=== PATIENT | female | born 1975 | race Caucasian/White ===

== ENCOUNTER → 2017-09-24 13:04 | Outpatient (CLI) | payer OTHER, SELFPAY ==
--- NOTE | 2017-09-24 13:00 | ECHOCS_ITS ---
Reason For Study: CHF Procedure This was a 2D Doppler, Color Flow transthoracic echocardiogram. The exam was of fair technical quality due to diminished acoustic windows. The study was technically difficult. Contrast injection was performed. Exam performed in department. Left Ventricle Mild to moderately dilated left ventricle. Mild to moderate global left ventricular systolic dysfunction. The estimated ejection fraction is 35 %. Right Ventricle Normal RV size. ICD or pacer leads identified within the right ventricle. Normal systolic function. Atria The left atrium is mildly enlarged. Normal right atrium. ICD or pacer leads identified within the right atrium. No doppler evidence for ASD. Mitral Valve There is no mitral annular calcification. Mild papillary muscle dysfunction of the mitral valve. Mild (1+) mitral valve insufficiency. Tricuspid Valve Normal tricuspid valve. Trivial tricuspid valve insufficiency. Right ventricular systolic pressure estimated to be 30 mmHg. Aortic Valve Trisinus/trileaflet aortic valve. Normal aortic valve. Pulmonic Valve The pulmonic valve is not well visualized. Trivial pulmonic valve insufficiency. Great Vessels Normal sized aortic root. Pericardium/Pleural No pericardial effusion. Medication Definity0.3ml given slow IV push to enhance endocardial definition. MMode/2D Measurements & Calculations LVIDd: 6.0 cm IVSd: 0.85 cm Ao root diam: 2.5 cm LVIDs: 5.0 cm LVPWd: 0.69 cm LA dimension: 4.3 cm RVDd: 3.2 cm FS: 16.2 % LAV(MOD-bp): 63.3 ml LA A4 area: 20.1 cm2 RA A4 area: 13.9 cm2 LAV(MOD-bp) Indexed: 35.0 ml/m2 LAV(MOD-sp2): 58.9 ml LAV(MOD-sp4): 59.9 ml Doppler Measurements & Calculations MV E max quinn: 119.4 cm/sec Lat Peak E' Quinn: 9.5 cm/sec Med Peak E' Quinn: 6.6 cm/sec MV A max quinn: 53.7 cm/sec E/E' lat: 12.6 E/E' med: 18.1 MV E/A: 2.2 Ao V2 max: 148.0 cm/sec LV V1 max: 93.4 cm/sec PA V2 max: 120.0 cm/sec Ao max P.8 mmHg LV V1 max P.5 mmHg Ao V2 mean: 111.4 cm/sec Ao mean P.3 mmHg Ao V2 VTI: 32.5 cm TR max quinn: 258.9 cm/sec TR max P.8 mmHg Interpretation Summary The study was technically difficult. Contrast injection was performed. Mild to moderately dilated left ventricle. Mild to moderate global left ventricular systolic dysfunction. The estimated ejection fraction is 35 %. The left atrium is mildly enlarged. Mild papillary muscle dysfunction of the mitral valve. Mild (1+) mitral valve insufficiency. Trivial pulmonic valve insufficiency. Right ventricular systolic pressure estimated to be 30 mmHg. ICD or pacer leads identified within the right atrium ICD or pacer leads identified within the right ventricle. Ordering Physician: Festus Hope Referring Physician: Jj Alcala Performed By: Daniela Pan, RDCS, RVT
== END ==
PROVIDERS: Family Provider Family Medicine; PCP Family Medicine; Visit Provider Internal Medicine Cardiovascular Disease
DX: I50.9 Heart failure, unspecified (principal)
CPT/HCPCS: 93306; Q9957; A4216; C8929

== ENCOUNTER 2017-11-25 08:05 | Inpatient (IN) | payer OTHER, SELFPAY ==
[2017-11-25] VITALS (10 sets, daily range): BP systolic 112–132; BP diastolic 63–73; PULSE 53–79; RESP 14–18; TEMP 36.8–37.1; O2SAT 94–97; BMI 34.0
--- NOTE | 2017-11-25 09:08 | EKG12_ITS ---
Test Reason : Blood Pressure : / mmHG Vent. Rate : 055 BPM Atrial Rate : 055 BPM P-R Int : 126 ms QRS Dur : 084 ms QT Int : 452 ms P-R-T Axes : 029 001 -08 degrees QTc Int : 432 ms Sinus bradycardia Nonspecific T wave abnormality Abnormal ECG When compared with ECG of 10-MAY-2013 09:54, No significant change was found Confirmed by ADAM GILLIS ([id number]), movie editor RANDI SMITH ([id number]) on 11/27/2017 3:18:47 PM Referred By: Festus Hope Confirmed By:ADAM GILLIS
--- NOTE | 2017-11-25 09:24 | PCM.HP.CAR ---
Problem List (1) Encounter for monitoring anti-arrhythmic therapy Status: Acute (2) Ventricular ectopy Status: Chronic (3) Paroxysmal ventricular tachycardia Status: Chronic (4) Automatic implantable cardiac defibrillator in situ Status: Chronic (5) Cardiomyopathy Status: Chronic Qualifiers: Cardiomyopathy type: unspecified Qualified Code(s): I42.9 - Cardiomyopathy, unspecified History of Present Illness Date of Admission: 11/25/17 The patient is a 41 year old white female with a past cardiovascular history of a non-CAD related cardiomyopathy, associated systolic mediated CHF, cardiac ectopy with PVCs and nonsustained ventricular tachycardia, syncope, status post an ICD placement who presents now for antiarrhythmic medication initiation and monitoring. He has continued outpatient cardiovascular follow-up locally as well as with her tertiary care center export agent for both CHF and electrophysiology at [facility]. She was recently evaluated by her manager environmental health and safety who presented her with an option of initiation of antiarrhythmic therapy with dofetilide/Tikosyn. She requested this be initiated at [facility]. She has denied any ongoing issues of chest discomfort. There has been no episodes of acute CHF or pulmonary edema. There has been no recurrent near syncope or syncope. She states her ICD has not discharged. She most recently underwent evaluation with a 24 hour Holter monitor in August of this year. She had underlying sinus rhythm with occasional paced beats. She had occasional PACs. She had frequent PVCs as well as ventricular couplets, triplets, bigeminy, trigeminy, and nonsustained wide complex tachycardia. Her overall ventricular burden was approximately 16%. Her most recent transthoracic echocardiogram was performed on 09/24/2017. At that time her left ventricle demonstrated mild to moderate dilatation with mild to moderate global left ventricular systolic dysfunction with an estimated LVEF of 35%. She had mild left atrial enlargement with mild papillary muscle dysfunction with mild MR, trivial OR, and an estimated RV systolic pressure of 30 mmHg. She had ICD wires in the right atrium and the right ventricle. [] Past Medical History Allergies/Adverse Reactions: Allergies Sulfa (Sulfonamide Antibiotics) Adverse Reaction (Severe, Verified 08/27/17 15:23) Unknown Home Medications: Ambulatory Orders Medication Instructions Recorded Fluoxetine HCl [Fluoxetine HCl] 40 mg PO DAILY 11/14/16 ascorbic acid (vitamin C) 500 mg 500 mg PO DAILY 08/26/17 tablet aspirin 81 mg tablet,delayed 81 mg PO DAILY 08/26/17 release carvedilol 25 mg tablet 25 mg PO BID tab 08/26/17 cholecalciferol (vitamin D3) 2,000 2,000 unit PO DAILY cap 08/26/17 unit capsule coenzyme Q10 200 mg capsule 200 mg PO DAILY 08/26/17 magnesium oxide 400 mg capsule 400 mg PO BID cap 08/26/17 multivitamin tablet 1 tab PO DAILY 08/26/17 vitamin B complex tablet 1 tab PO DAILY 08/26/17 lisinopril 10 mg tablet 10 mg PO BID #180 tab 09/29/17 Spironolactone 12.5 mg PO DAILY 11/25/17 Past Medical History (Chronic Problems): Chronic Problems (Last Reviewed 08/27/17 @ 15:24 by Joseline Johnson) Cardiomyopathy (Chronic) Ventricular ectopy (Chronic) Automatic implantable cardiac defibrillator in situ (Chronic) Primary idiopathic hypertrophic cardiomyopathy (Chronic) Paroxysmal ventricular tachycardia (Chronic) Congestive heart failure with left ventricular systolic dysfunction (Chronic) Nonrheumatic mitral valve disorder (Chronic) Surgical History: - - ICD Lives: Spouse/ Significant Other Smoking Status: Never smoker Alcohol: None Drugs: None Review of Systems - Review of Systems General: Denies: Fever, Night Sweats, Fatigue Cardiovascular: Reports: Palpitations. Denies: Chest Discomfort, Shortness of Breath, Orthopnea, PND, Peripheral Edema, Lightheadedness, Dizziness, Near Syncope, Syncope Respiratory: Denies: Cough, Sputum Production, Hemoptysis Gastrointestinal: Denies: Hematemesis, Hematochezia, Melena Genitourinary: Denies: Dysuria, Hematuria Skin: Denies: Rash Subjectve: This is a 41-year-old white female who appears to be resting comfortably at the moment in no acute distress. Objective: Vital Signs Temp Pulse Resp BP Pulse Ox 98.3 F 64 14 112/69 97 11/25/17 08:26 11/25/17 09:04 11/25/17 08:26 11/25/17 08:26 11/25/17 08:26 Oxygen Delivery Method Room Air Weight: 180 lb Body Mass Index (BMI) 34.0 General: Awake, Alert, Oriented x 3, Cooperative, No Acute Distress Neck: Supple, Good ROM, No JVD Lungs: Clear to auscultation Cardiovascular: Regular Rhythm, Premature Ectopic Beats, Normal S1, Normal S2 Vascular: No Carotid Bruits Abdomen: Bowel Sounds Present, Soft, Non Tender Extremities: No Cyanosis, No Clubbing, No edema Neurological: No Focal Motor or Sensory Deficit VTE Information - Inpt Only VTE Present on Admission: No VTE Mechan Device Prophylaxis: None VTE Pharm Prophylaxis ordered?: Yes Rhythm: Sinus rhythm EKG: Sinus bradycardia; nonspecific T-wave abnormality ECHO: As noted above Holter monitor: As noted above Assessment/Plan 1. Antiarrhythmic medication initiation The patient is undergoing further evaluation and care for her underlying non-CAD related cardiomyopathy and associated ventricular ectopy as noted above. She has been evaluated locally and by electrophysiology at [facility]. She was asked to consider antiarrhythmic medication therapy with initiation of dofetilide/Tikosyn. She was in agreement to this and requested this be initiated at [facility]. Thus, she presents to [facility] today for elective antiarrhythmic medication initiation. She will continue appropriate laboratory studies. She will have cardiac rhythm monitoring. She will have ECG follow-up. She will be initiated on dofetilide/Tikosyn 250 mcg p.o. twice daily. She will be monitored for any adverse symptoms or cardiovascular events. He will need to be monitored for a minimum of 4 doses in the hospital. If she does well on this medication, etc., then she will be released home for continued outpatient cardiovascular follow-up and monitoring. 2. Ventricular ectopy/nonsustained ventricular tachycardia She does have underlying ventricular ectopy with nonsustained ventricular tachycardia as noted above. She has undergone extensive noninvasive and invasive evaluation in the past. She is to initiate antiarrhythmic monitoring. She does have an underlying ICD in place. 3. ICD The patient does have an underlying ICD. It has been followed as an outpatient. It has been functioning appropriately. 4. Non-CAD related cardiomyopathy The patient does have a non-CAD related cardiomyopathy. She will continue medical management for this. Hopefully with improvement of her underlying cardiac rhythm she may have improvement in her overall left ventricular wall motion systolic function if part of her underlying non-CAD related cardiomyopathy is secondary to her ventricular ectopy-PVC induced. She will be monitored for any obvious symptoms related to her non-CAD related cardiomyopathy. She will continue future outpatient cardiovascular follow-up as well. Comment: The above was discussed and reviewed with the patient. She was agreeable to this approach. This note was generated with [employer] software. It may contain incorrect words, spelling, and punctuation that were not noted in checking the note before signing.
--- NOTE | 2017-11-25 09:27 | HP.PCM_ITS ---
Problem List (1) Encounter for monitoring anti-arrhythmic therapy Status: Acute (2) Ventricular ectopy Status: Chronic (3) Paroxysmal ventricular tachycardia Status: Chronic (4) Automatic implantable cardiac defibrillator in situ Status: Chronic (5) Cardiomyopathy Status: Chronic Qualifiers: Cardiomyopathy type: unspecified Qualified Code(s): I42.9 - Cardiomyopathy , unspecified History of Present Illness Date of Admission: 11/25/17 The patient is a 41 year old white female with a past cardiovascular history of a non-CAD related cardiomyopathy, associated systolic mediated CHF, cardiac ectopy with PVCs and nonsustained ventricular tachycardia, syncope, status post an ICD placement who presents now for antiarrhythmic medication initiation and monitoring. He has continued outpatient cardiovascular follow-up locally as well as with her tertiary care center compliance review specialist for both CHF and electrophysiology at [facility]. She was recently evaluated by her behavioral scientist who presented her with an option of initiation of antiarrhythmic therapy with dofetilide/ Tikosyn. She requested this be initiated at [facility]. She has denied any ongoing issues of chest discomfort. There has been no episodes of acute CHF or pulmonary edema. There has been no recurrent near syncope or syncope. She states her ICD has not discharged. She most recently underwent evaluation with a 24 hour Holter monitor in August of this year. She had underlying sinus rhythm with occasional paced beats. She had occasional PACs. She had frequent PVCs as well as ventricular couplets , triplets, bigeminy, trigeminy, and nonsustained wide complex tachycardia. Her overall ventricular burden was approximately 16%. Her most recent transthoracic echocardiogram was performed on 09/24/2017. At that time her left ventricle demonstrated mild to moderate dilatation with mild to moderate global left ventricular systolic dysfunction with an estimated LVEF of 35%. She had mild left atrial enlargement with mild papillary muscle dysfunction with mild MR, trivial DC, and an estimated RV systolic pressure of 30 mmHg. She had ICD wires in the right atrium and the right ventricle. [] Past Medical History Allergies/Adverse Reactions: Allergies Sulfa (Sulfonamide Antibiotics) Adverse Reaction (Severe, Verified 08/27/17 15: 23) Unknown Home Medications: Ambulatory Orders Medication Instructions Recorded Fluoxetine HCl [Fluoxetine HCl] 40 mg PO DAILY 11/14/16 ascorbic acid (vitamin C) 500 mg 500 mg PO DAILY 08/26/17 tablet aspirin 81 mg tablet,delayed 81 mg PO DAILY 08/26/17 release carvedilol 25 mg tablet 25 mg PO BID tab 08/26/17 cholecalciferol (vitamin D3) 2,000 2,000 unit PO DAILY cap 08/26/17 unit capsule coenzyme Q10 200 mg capsule 200 mg PO DAILY 08/26/17 magnesium oxide 400 mg capsule 400 mg PO BID cap 08/26/17 multivitamin tablet 1 tab PO DAILY 08/26/17 vitamin B complex tablet 1 tab PO DAILY 08/26/17 lisinopril 10 mg tablet 10 mg PO BID #180 tab 09/29/17 Spironolactone 12.5 mg PO DAILY 11/25/17 Past Medical History (Chronic Problems): Chronic Problems (Last Reviewed 08/27/17 @ 15:24 by Joseline Johnson) Cardiomyopathy (Chronic) Ventricular ectopy (Chronic) Automatic implantable cardiac defibrillator in situ (Chronic) Primary idiopathic hypertrophic cardiomyopathy (Chronic) Paroxysmal ventricular tachycardia (Chronic) Congestive heart failure with left ventricular systolic dysfunction (Chronic) Nonrheumatic mitral valve disorder (Chronic) Surgical History: - - ICD Lives: Spouse/ Significant Other Smoking Status: Never smoker Alcohol: None Drugs: None Review of Systems - Review of Systems General: Denies: Fever, Night Sweats, Fatigue Cardiovascular: Reports: Palpitations. Denies: Chest Discomfort, Shortness of Breath, Orthopnea, PND, Peripheral Edema, Lightheadedness, Dizziness, Near Syncope, Syncope Respiratory: Denies: Cough, Sputum Production, Hemoptysis Gastrointestinal: Denies: Hematemesis, Hematochezia, Melena Genitourinary: Denies: Dysuria, Hematuria Skin: Denies: Rash Subjectve: This is a 41-year-old white female who appears to be resting comfortably at the moment in no acute distress. Objective: Vital Signs Temp Pulse Resp BP Pulse Ox 98.3 F 64 14 112/69 97 11/25/17 08:26 11/25/17 09:04 11/25/17 08:26 11/25/17 08:26 11/25/17 08:26 Oxygen Delivery Method Room Air Weight: 180 lb Body Mass Index (BMI) 34.0 General: Awake, Alert, Oriented x 3, Cooperative, No Acute Distress Neck: Supple, Good ROM, No JVD Lungs: Clear to auscultation Cardiovascular: Regular Rhythm, Premature Ectopic Beats, Normal S1, Normal S2 Vascular: No Carotid Bruits Abdomen: Bowel Sounds Present, Soft, Non Tender Extremities: No Cyanosis, No Clubbing, No edema Neurological: No Focal Motor or Sensory Deficit VTE Information - Inpt Only VTE Present on Admission: No VTE Mechan Device Prophylaxis: None VTE Pharm Prophylaxis ordered?: Yes Rhythm: Sinus rhythm EKG: Sinus bradycardia; nonspecific T-wave abnormality ECHO: As noted above Holter monitor: As noted above Assessment/Plan 1. Antiarrhythmic medication initiation The patient is undergoing further evaluation and care for her underlying non- CAD related cardiomyopathy and associated ventricular ectopy as noted above. She has been evaluated locally and by electrophysiology at [facility]. She was asked to consider antiarrhythmic medication therapy with initiation of dofetilide/ Tikosyn. She was in agreement to this and requested this be initiated at [facility]. Thus, she presents to [facility] today for elective antiarrhythmic medication initiation. She will continue appropriate laboratory studies. She will have cardiac rhythm monitoring. She will have ECG follow-up. She will be initiated on dofetilide/Tikosyn 250 mcg p.o. twice daily. She will be monitored for any adverse symptoms or cardiovascular events. He will need to be monitored for a minimum of 4 doses in the hospital. If she does well on this medication, etc., then she will be released home for continued outpatient cardiovascular follow-up and monitoring. 2. Ventricular ectopy/nonsustained ventricular tachycardia She does have underlying ventricular ectopy with nonsustained ventricular tachycardia as noted above. She has undergone extensive noninvasive and invasive evaluation in the past. She is to initiate antiarrhythmic monitoring. She does have an underlying ICD in place. 3. ICD The patient does have an underlying ICD. It has been followed as an outpatient. It has been functioning appropriately. 4. Non-CAD related cardiomyopathy The patient does have a non-CAD related cardiomyopathy. She will continue medical management for this. Hopefully with improvement of her underlying cardiac rhythm she may have improvement in her overall left ventricular wall motion systolic function if part of her underlying non-CAD related cardiomyopathy is secondary to her ventricular ectopy-PVC induced. She will be monitored for any obvious symptoms related to her non-CAD related cardiomyopathy. She will continue future outpatient cardiovascular follow-up as well. Comment: The above was discussed and reviewed with the patient. She was agreeable to this approach. This note was generated with [employer] software. It may contain incorrect words, spelling, and punctuation that were not noted in checking the note before signing.
[2017-11-25 09:55] LABS: Hematocrit 35.5 % (37-47); Hemoglobin 11.8 g/dl (12.0-15.0); Mean Corp Hgb Conc 33.2 g/gl (32-36); Mean Corpuscular Hgb 31.5 pg (27.0-32.0); Mean Corpuscular Volume 94.7 fL (81-99); Mean Platelet Vol. 11.5 fl (6.2-12.0); Platelet Count 220 K/mm3 (150-450); RBC Distribution Width CV 12.4 % (11.6-14.6); RBC Distribution Width SD 41.7 fl (35.1-43.9); Red Blood Count 3.75 M/mm3 (4.2-5.4); White Blood Count 5.8 K/mm3 (4.4-11.0)
[2017-11-25 09:56] LABS: Scan Indicated on CBC? Y/N NO
[2017-11-25 10:08] LABS: Anion Gap 6 (5-15); BUN 12 mg/dL (7-18); BUN/Creat Ratio 17.7 RATIO (10-20); Calcium,Total 8.2 mg/dL (8.5-10.1); Chloride 106 mmol/L (98-107); Creatinine, Serum 0.68 mg/dL (0.55-1.02); EST Glomerular Filtration Rate 101 mL/min (>60); Est Glom Filt Rate - Afr Amer 123 mL/min (>60); Estimated Creatinine Clearance 82.16 ml/min; Glucose 92 mg/dL (74-106); Magnesium 2.1 mg/dL (1.6-2.6); Potassium 4.1 mmol/L (3.5-5.1); Sodium Level 140 mmol/L (136-145)
[2017-11-25] MEDS: Dofetilide 250 MCG Capsule PO ×2 (11:40→21:34)
--- NOTE | 2017-11-25 12:40 | EKG12_ITS ---
Test Reason : MEDICATION Blood Pressure : / mmHG Vent. Rate : 057 BPM Atrial Rate : 057 BPM P-R Int : 132 ms QRS Dur : 072 ms QT Int : 460 ms P-R-T Axes : 022 -03 -08 degrees QTc Int : 447 ms Sinus bradycardia Nonspecific T wave abnormality Abnormal ECG When compared with ECG of 25-NOV-2017 10:04, MANUAL COMPARISON REQUIRED, DATA IS UNCONFIRMED Confirmed by ADAM GILLIS ([id number]), news copy editor RANDI SMITH ([id number]) on 11/27/2017 3:18:59 PM Referred By: Festus Hope Confirmed By:ADAM GILLIS
[2017-11-25] MEDS: Heparin Injection (Vial) 5,000 UNIT/ML VIAL 5000 UNIT SC ×2 (13:59→21:34)
[2017-11-25] MEDS: Magnesium Oxide 400 MG Tablet PO (16:53)
[2017-11-25] MEDS: Lisinopril 10 MG Tablet PO (21:35)
[2017-11-25] MEDS: Carvedilol 25 MG Tablet PO (22:33)
--- NOTE | 2017-11-25 22:40 | EKG12_ITS ---
Test Reason : MED Blood Pressure : / mmHG Vent. Rate : 057 BPM Atrial Rate : 057 BPM P-R Int : 132 ms QRS Dur : 084 ms QT Int : 482 ms P-R-T Axes : 044 014 009 degrees QTc Int : 469 ms Sinus bradycardia Nonspecific T wave abnormality Prolonged QT Abnormal ECG Confirmed by SARIAH GAYLE, FESTUS ([id number]), publications editor RANDI SMITH ([id number] on 11/28/2017 1:33:09 PM Referred By: Festus Rolle Confirmed By:FESTUS ROLLE MD
[2017-11-26] VITALS (10 sets, daily range): BP systolic 107–127; BP diastolic 61–75; PULSE 59–66; RESP 16–18; TEMP 36.7–37.2; O2SAT 95–97
[2017-11-26] MEDS: Heparin Injection (Vial) 5,000 UNIT/ML VIAL 5000 UNIT SC ×3 (05:24→21:21)
--- NOTE | 2017-11-26 05:55 | EKG12_ITS ---
Test Reason : POST MEDICATION Blood Pressure : / mmHG Vent. Rate : 060 BPM Atrial Rate : 060 BPM P-R Int : 132 ms QRS Dur : 076 ms QT Int : 480 ms P-R-T Axes : 040 008 -30 degrees QTc Int : 480 ms Normal sinus rhythm Nonspecific ST and T wave abnormality Prolonged QT Abnormal ECG Confirmed by SARIAH GAYLE, FESTUS ([id number]), editorial specialist RANDI SMITH ([id number] on 11/28/2017 1:27:32 PM Referred By: Festus Rolle Confirmed By:FESTUS ROLLE MD
[2017-11-26 06:54] LABS: Anion Gap 9 (5-15); BUN 12 mg/dL (7-18); BUN/Creat Ratio 15.7 RATIO (10-20); Calcium,Total 8.6 mg/dL (8.5-10.1); Chloride 106 mmol/L (98-107); Creatinine, Serum 0.77 mg/dL (0.55-1.02); EST Glomerular Filtration Rate 88 mL/min (>60); Est Glom Filt Rate - Afr Amer 106 mL/min (>60); Estimated Creatinine Clearance 72.55 ml/min; Glucose 97 mg/dL (74-106); Potassium 4.1 mmol/L (3.5-5.1); Sodium Level 141 mmol/L (136-145)
[2017-11-26] MEDS: Aspirin E.C. 81 MG Tablet PO (09:07)
[2017-11-26] MEDS: Magnesium Oxide 400 MG Tablet PO ×2 (09:07→16:09)
[2017-11-26] MEDS: Lisinopril 10 MG Tablet PO ×2 (09:08→21:22)
[2017-11-26] MEDS: Carvedilol 25 MG Tablet PO ×2 (09:08→21:21)
[2017-11-26] MEDS: FLUoxetine 20 MG Capsule 40 MG PO (09:08)
[2017-11-26] MEDS: Spironolactone 25 MG Tablet 12.5 MG PO (09:08)
[2017-11-26] MEDS: Dofetilide 250 MCG Capsule PO ×2 (09:08→21:21)
--- NOTE | 2017-11-26 09:10 | PCM.PN.CARD ---
Subjectve: The patient is awake and alert. She denies any obvious palpitations or rapid heart rate sensations. There has been no near syncope or syncope. She has denied any other forms of chest discomfort or difficulty breathing. Objective: Vital Signs Temp Pulse Resp BP Pulse Ox 98.3 F 62 18 127/61 H 95 11/26/17 03:30 11/26/17 07:08 11/26/17 03:30 11/26/17 03:30 11/26/17 03:30 Oxygen Delivery Method Room Air Weight: 180 lb Body Mass Index (BMI) 34.0 Intake and Output for Last 24 Hours 11/24/17 11/25/17 11/26/17 23:59 23:59 23:59 Intake Total 1305 / 1305 240 / 240 Balance 1305 / 1305 240 / 240 General: Awake, Alert, Oriented x 3, Cooperative, No Acute Distress Neck: No JVD Lungs: Clear to auscultation Cardiovascular: Regular Rhythm, Normal S1, Normal S2 Vascular: No Carotid Bruits Abdomen: Bowel Sounds Present, Soft, Non Tender Extremities: No edema 11/25/17 09:47: WBC 5.8, RBC 3.75 L, Hgb 11.8 L, Hct 35.5 L, MCV 94.7, MCH 31.5, MCHC 33.2, RDW 12.4, RDW Differential 41.7, Plt Count 220, MPV 11.5 11/25/17 09:47: Sodium 140, Potassium 4.1, Chloride 106, Carbon Dioxide 28.0, Anion Gap 6, BUN 12, Creatinine 0.68, Est GFR (MDRD) Af Amer 123, Est GFR (MDRD) Non-Af 101, BUN/Creatinine Ratio 17.7, Glucose 92, Calcium 8.2 L, Magnesium 2.1 11/26/17 06:00: Sodium 141, Potassium 4.1, Chloride 106, Carbon Dioxide 26.0, Anion Gap 9, BUN 12, Creatinine 0.77, Est GFR (MDRD) Af Amer 106, Est GFR (MDRD) Non-Af 88, BUN/Creatinine Ratio 15.7, Glucose 97, Calcium 8.6 Rhythm: Sinus rhythm; one episode of a 7 beat wide complex tachycardia EKG: Sinus rhythm/sinus bradycardia with nonspecific T-wave abnormality Medical Necessity - Tobacco Use Smoking Status: Never smoker Assessment/Plan 1. Antiarrhythmic medication initiation The patient is undergoing further evaluation and care for her underlying non-CAD related cardiomyopathy and associated ventricular ectopy as noted above. She has been evaluated locally and by electrophysiology at [facility]. She was asked to consider antiarrhythmic medication therapy with initiation of dofetilide/Tikosyn. She was in agreement to this and requested this be initiated at [facility]. Thus, she presents to [facility] today for elective antiarrhythmic medication initiation. She will continue appropriate laboratory studies. She will have cardiac rhythm monitoring. She will have ECG follow-up. She has initiated dofetilide/Tikosyn 250 mcg p.o. twice daily. She will be monitored for any adverse symptoms or cardiovascular events. He will need to be monitored for a minimum of 4 doses in the hospital. If she does well on this medication, etc., then she will be released home for continued outpatient cardiovascular follow-up and monitoring. Thus far, her ECGs have been monitored. She has had variable QT/QTc intervals however no QT or QTC intervals greater than 500 or 550 ms. Her cardiac rhythm is demonstrated one episode of a 7 beat run of wide-complex tachydysrhythmia yesterday evening. 2. Ventricular ectopy/nonsustained ventricular tachycardia She does have underlying ventricular ectopy with nonsustained ventricular tachycardia as noted above. She has undergone extensive noninvasive and invasive evaluation in the past. She has initiated antiarrhythmic monitoring. She does have an underlying ICD in place. 3. ICD The patient does have an underlying ICD. It has been followed as an outpatient. It has been functioning appropriately. 4. Non-CAD related cardiomyopathy The patient does have a non-CAD related cardiomyopathy. She will continue medical management for this. Hopefully with improvement of her underlying cardiac rhythm she may have improvement in her overall left ventricular wall motion systolic function if part of her underlying non-CAD related cardiomyopathy is secondary to her ventricular ectopy-PVC induced. She will be monitored for any obvious symptoms related to her non-CAD related cardiomyopathy. She will continue future outpatient cardiovascular follow-up as well. Comment: Her case was discussed via telephone with her blender operator , Dr. Brandan Sifuentes, of [facility]. He noted that her cardiac rhythm normality's at this time were not thought to be related to the initiation of medication but her underlying ambient ventricular dysrhythmia secondary to her underlying cardiomyopathy. He agreed with continuing her dofetilide/Tikosyn initiation at the current dose, continuing her ECG follow-up, and continuing her cardiac rhythm follow-up. He noted that her QT/QTc intervals would be variable at this time and to monitor for any intervals that would be greater than 500 ms that would warrant alteration in the dose or discontinuation of the medication. The above was discussed and reviewed with the patient. She was agreeable to this approach. This note was generated with [employer] dictation software. It may contain incorrect words, spelling, and punctuation that were not noted in checking the note before signing.
--- NOTE | 2017-11-26 09:16 | PN.CARD_ITS ---
Subjectve: The patient is awake and alert. She denies any obvious palpitations or rapid heart rate sensations. There has been no near syncope or syncope. She has denied any other forms of chest discomfort or difficulty breathing. Objective: Vital Signs Temp Pulse Resp BP Pulse Ox 98.3 F 62 18 127/61 H 95 11/26/17 03:30 11/26/17 07:08 11/26/17 03:30 11/26/17 03:30 11/26/17 03:30 Oxygen Delivery Method Room Air Weight: 180 lb Body Mass Index (BMI) 34.0 Intake and Output for Last 24 Hours 11/24/17 11/25/17 11/26/17 23:59 23:59 23:59 Intake Total 1305 / 1305 240 / 240 Balance 1305 / 1305 240 / 240 General: Awake, Alert, Oriented x 3, Cooperative, No Acute Distress Neck: No JVD Lungs: Clear to auscultation Cardiovascular: Regular Rhythm, Normal S1, Normal S2 Vascular: No Carotid Bruits Abdomen: Bowel Sounds Present, Soft, Non Tender Extremities: No edema 11/25/17 09:47: WBC 5.8, RBC 3.75 L, Hgb 11.8 L, Hct 35.5 L, MCV 94.7, MCH 31.5 , MCHC 33.2, RDW 12.4, RDW Differential 41.7, Plt Count 220, MPV 11.5 11/25/17 09:47: Sodium 140, Potassium 4.1, Chloride 106, Carbon Dioxide 28.0, Anion Gap 6, BUN 12, Creatinine 0.68, Est GFR (MDRD) Af Amer 123, Est GFR (MDRD ) Non-Af 101, BUN/Creatinine Ratio 17.7, Glucose 92, Calcium 8.2 L, Magnesium 2.1 11/26/17 06:00: Sodium 141, Potassium 4.1, Chloride 106, Carbon Dioxide 26.0, Anion Gap 9, BUN 12, Creatinine 0.77, Est GFR (MDRD) Af Amer 106, Est GFR (MDRD ) Non-Af 88, BUN/Creatinine Ratio 15.7, Glucose 97, Calcium 8.6 Rhythm: Sinus rhythm; one episode of a 7 beat wide complex tachycardia EKG: Sinus rhythm/sinus bradycardia with nonspecific T-wave abnormality Medical Necessity - Tobacco Use Smoking Status: Never smoker Assessment/Plan 1. Antiarrhythmic medication initiation The patient is undergoing further evaluation and care for her underlying non- CAD related cardiomyopathy and associated ventricular ectopy as noted above. She has been evaluated locally and by electrophysiology at [facility]. She was asked to consider antiarrhythmic medication therapy with initiation of dofetilide/ Tikosyn. She was in agreement to this and requested this be initiated at [facility]. Thus, she presents to [facility] today for elective antiarrhythmic medication initiation. She will continue appropriate laboratory studies. She will have cardiac rhythm monitoring. She will have ECG follow-up. She has initiated dofetilide/Tikosyn 250 mcg p.o. twice daily. She will be monitored for any adverse symptoms or cardiovascular events. He will need to be monitored for a minimum of 4 doses in the hospital. If she does well on this medication, etc., then she will be released home for continued outpatient cardiovascular follow-up and monitoring. Thus far, her ECGs have been monitored. She has had variable QT/QTc intervals however no QT or QTC intervals greater than 500 or 550 ms. Her cardiac rhythm is demonstrated one episode of a 7 beat run of wide-complex tachydysrhythmia yesterday evening. 2. Ventricular ectopy/nonsustained ventricular tachycardia She does have underlying ventricular ectopy with nonsustained ventricular tachycardia as noted above. She has undergone extensive noninvasive and invasive evaluation in the past. She has initiated antiarrhythmic monitoring. She does have an underlying ICD in place. 3. ICD The patient does have an underlying ICD. It has been followed as an outpatient. It has been functioning appropriately. 4. Non-CAD related cardiomyopathy The patient does have a non-CAD related cardiomyopathy. She will continue medical management for this. Hopefully with improvement of her underlying cardiac rhythm she may have improvement in her overall left ventricular wall motion systolic function if part of her underlying non-CAD related cardiomyopathy is secondary to her ventricular ectopy-PVC induced. She will be monitored for any obvious symptoms related to her non-CAD related cardiomyopathy. She will continue future outpatient cardiovascular follow-up as well. Comment: Her case was discussed via telephone with her aircraft maintenance supervisor , Dr. Brandan Sifuentes, of [facility]. He noted that her cardiac rhythm normality's at this time were not thought to be related to the initiation of medication but her underlying ambient ventricular dysrhythmia secondary to her underlying cardiomyopathy. He agreed with continuing her dofetilide/Tikosyn initiation at the current dose, continuing her ECG follow-up, and continuing her cardiac rhythm follow-up. He noted that her QT/QTc intervals would be variable at this time and to monitor for any intervals that would be greater than 500 ms that would warrant alteration in the dose or discontinuation of the medication. The above was discussed and reviewed with the patient. She was agreeable to this approach. This note was generated with [employer] dictation software. It may contain incorrect words, spelling, and punctuation that were not noted in checking the note before signing.
--- NOTE | 2017-11-26 10:08 | EKG12_ITS ---
Test Reason : Blood Pressure : / mmHG Vent. Rate : 063 BPM Atrial Rate : 063 BPM P-R Int : 128 ms QRS Dur : 072 ms QT Int : 426 ms P-R-T Axes : 029 -07 027 degrees QTc Int : 435 ms Normal sinus rhythm Nonspecific ST and T wave abnormality Abnormal ECG Confirmed by SARIAH GAYLE, FESTUS ([id number]), news editor RANDI SMITH ([id number]) on 11/28/2017 1:27:45 PM Referred By: Festus Rolle Confirmed By:FESTUS ROLLE MD
[2017-11-26] MEDS: 0.9% NaCl Peripheral Flush Adult/Peds IV (13:09)
--- NOTE | 2017-11-26 21:21 | NURSING ---
ilan in resp notified ekg at 2219.
--- NOTE | 2017-11-26 22:30 | EKG12_ITS ---
Test Reason : AM EKG Blood Pressure : / mmHG Vent. Rate : 064 BPM Atrial Rate : 064 BPM P-R Int : 136 ms QRS Dur : 082 ms QT Int : 452 ms P-R-T Axes : 041 016 -15 degrees QTc Int : 466 ms Normal sinus rhythm Nonspecific T wave abnormality Prolonged QT Abnormal ECG Confirmed by SARIAH GAYLE, FESTUS ([id number]), city editor RANDI SMITH ([id number]) on 11/28/2017 1:29:17 PM Referred By: Festus Rolle Confirmed By:FESTUS ROLLE MD
[2017-11-27 03:14] VITALS: BP 111/69; PULSE 56; RESP 16; TEMP 36.8; O2SAT 98
[2017-11-27 03:34] VITALS: PULSE 51
[2017-11-27] MEDS: Heparin Injection (Vial) 5,000 UNIT/ML VIAL 5000 UNIT SC (05:26)
--- NOTE | 2017-11-27 05:55 | EKG12_ITS ---
Test Reason : AM EKG Blood Pressure : / mmHG Vent. Rate : 060 BPM Atrial Rate : 060 BPM P-R Int : 134 ms QRS Dur : 084 ms QT Int : 462 ms P-R-T Axes : 040 010 -11 degrees QTc Int : 462 ms Normal sinus rhythm Nonspecific T wave abnormality Prolonged QT Abnormal ECG Confirmed by SARIAH GAYLE, FESTUS ([id number]), multimedia editor RANDI SMITH ([id number]) on 11/28/2017 1:25:13 PM Referred By: Festus Rolle Confirmed By:FESTUS ROLLE MD
[2017-11-27 06:16] LABS: Anion Gap 7 (5-15); BUN 14 mg/dL (7-18); BUN/Creat Ratio 19.5 RATIO (10-20); Calcium,Total 8.7 mg/dL (8.5-10.1); Chloride 106 mmol/L (98-107); Creatinine, Serum 0.72 mg/dL (0.55-1.02); EST Glomerular Filtration Rate 95 mL/min (>60); Est Glom Filt Rate - Afr Amer 115 mL/min (>60); Estimated Creatinine Clearance 77.59 ml/min; Glucose 104 mg/dL (74-106); Potassium 4.1 mmol/L (3.5-5.1); Sodium Level 141 mmol/L (136-145)
[2017-11-27 07:29] VITALS: PULSE 59
[2017-11-27] MEDS: Magnesium Oxide 400 MG Tablet PO (08:56)
[2017-11-27] MEDS: Spironolactone 25 MG Tablet 12.5 MG PO (08:56)
[2017-11-27] MEDS: Carvedilol 25 MG Tablet PO (08:56)
[2017-11-27] MEDS: Aspirin E.C. 81 MG Tablet PO (08:56)
[2017-11-27] MEDS: FLUoxetine 20 MG Capsule 40 MG PO (08:57)
[2017-11-27] MEDS: Lisinopril 10 MG Tablet PO (08:57)
[2017-11-27] MEDS: Dofetilide 250 MCG Capsule PO (08:57)
[2017-11-27 09:15] VITALS: BP 125/75; PULSE 63; RESP 16; TEMP 36.8; O2SAT 94
--- NOTE | 2017-11-27 10:00 | EKG12_ITS ---
Test Reason : MEDICATION Blood Pressure : / mmHG Vent. Rate : 060 BPM Atrial Rate : 060 BPM P-R Int : 124 ms QRS Dur : 072 ms QT Int : 462 ms P-R-T Axes : 018 -05 -08 degrees QTc Int : 462 ms Normal sinus rhythm Nonspecific T wave abnormality Abnormal ECG Confirmed by SARIAH GAYLE, FESTUS ([id number]), brands editor RANDI SMITH ([id number]) on 11/28/2017 1:23:30 PM Referred By: Festus Rolle Confirmed By:FESTUS ROLLE MD
--- NOTE | 2017-11-27 10:41 | CASEMGMT ---
CM Initial Assessment: Home: Patient lives in a one story home, with basement. She lives with her and two sons. HHS: Never had. DME: None. Patient denies foreseeing needs. Pharmacy: [facility] (preferred). [facility] in [place]. Adv. Directives: None. Patient refuses assistance/information at this time. Providers: PCP - Jj Alcala. Cardiology - Dr. Hope and Dr. Alvarado ([facility]). DC Plan: Home, with family support. CM will follow for effective discharge planning.
[2017-11-27 11:26] VITALS: PULSE 74
--- NOTE | 2017-11-27 13:27 | PCM.DC ---
- Discharge Diagnoses Current Active Problems: Current Active and Chronic Problems (Last Reviewed 08/27/17 @ 15:24 by Joseline Johnson) Encounter for monitoring anti-arrhythmic therapy (Acute) Cardiomyopathy (Chronic) You will use the following diet at home:: Cardiac Your food should be the consistency of: Regular Your liquids should be the consistency of: Regular/Thin Discharge Activity: Return to Normal Activity Return to work on:: 11/28/17 May shower in (days): 1 May resume sexual activity in: No Restrictions Weight Bearing Status: Weight bearing as tolerated Call your doctor if you observe: Fainting spells, Increased palpitations (irregular heartbeat) Additional Dressing/Incision Instructions:: [facility] to arrange follow up office visit and outpatient ECG Allergies/Adverse Reactions: Allergies Sulfa (Sulfonamide Antibiotics) Adverse Reaction (Severe, Verified 08/27/17 15:23) Unknown Medications to take at Discharge Fluoxetine HCl 40 mg PO DAILY 11/14/16 ascorbic acid (vitamin C) 500 mg tablet 500 mg PO DAILY 08/26/17 aspirin 81 mg tablet,delayed release 81 mg PO DAILY 08/26/17 carvedilol 25 mg tablet 25 mg PO BID tab 08/26/17 cholecalciferol (vitamin D3) 2,000 unit capsule 2,000 unit PO DAILY cap 08/26/17 coenzyme Q10 200 mg capsule 200 mg PO DAILY 08/26/17 magnesium oxide 400 mg capsule 400 mg PO BID cap 08/26/17 multivitamin tablet 1 tab PO DAILY 08/26/17 vitamin B complex tablet 1 tab PO DAILY 08/26/17 lisinopril 10 mg tablet 10 mg PO BID #180 tab 09/29/17 Spironolactone 12.5 mg PO DAILY 11/25/17 Aspirin E.C. [Ecotrin] 81 mg PO DAILY@0800 tablet 11/27/17 Carvedilol [Coreg (Beta Telma)] 25 mg PO BID tablet 11/27/17 Dofetilide [Tikosyn] 250 mcg PO Q12 #60 cap 11/27/17 Fluoxetine [Prozac] 40 mg PO DAILY capsule 11/27/17 Lisinopril [Zestril] 10 mg PO BID tablet 11/27/17 Magnesium Oxide [Mag-Ox 400] 400 mg PO BIDCM tablet 11/27/17 Spironolactone [Aldactone] 12.5 mg PO DAILY tablet 11/27/17 The following prescriptions were given: Dofetilide [Tikosyn] 250 mcg PO Q12 #60 cap Primary Care Physician: Jj Alcala MD [Primary Care Provider] - Please Follow Up With: Festus Hope MD When: To be arranged by [facility] [facility] Proposed Discharge Date: 11/27/17
--- NOTE | 2017-11-27 13:31 | DCINST_ITS ---
- Discharge Diagnoses Current Active Problems: Current Active and Chronic Problems (Last Reviewed 08/27/17 @ 15:24 by Joseline Johnson) Encounter for monitoring anti-arrhythmic therapy (Acute) Cardiomyopathy (Chronic) You will use the following diet at home:: Cardiac Your food should be the consistency of: Regular Your liquids should be the consistency of: Regular/Thin Discharge Activity: Return to Normal Activity Return to work on:: 11/28/17 May shower in (days): 1 May resume sexual activity in: No Restrictions Weight Bearing Status: Weight bearing as tolerated Call your doctor if you observe: Fainting spells, Increased palpitations ( irregular heartbeat) Additional Dressing/Incision Instructions:: [facility] to arrange follow up office visit and outpatient ECG Allergies/Adverse Reactions: Allergies Sulfa (Sulfonamide Antibiotics) Adverse Reaction (Severe, Verified 08/27/17 15: 23) Unknown Medications to take at Discharge Fluoxetine HCl 40 mg PO DAILY 11/14/16 ascorbic acid (vitamin C) 500 mg tablet 500 mg PO DAILY 08/26/17 aspirin 81 mg tablet,delayed release 81 mg PO DAILY 08/26/17 carvedilol 25 mg tablet 25 mg PO BID tab 08/26/17 cholecalciferol (vitamin D3) 2,000 unit capsule 2,000 unit PO DAILY cap coenzyme Q10 200 mg capsule 200 mg PO DAILY 08/26/17 magnesium oxide 400 mg capsule 400 mg PO BID cap 08/26/17 multivitamin tablet 1 tab PO DAILY 08/26/17 vitamin B complex tablet 1 tab PO DAILY 08/26/17 lisinopril 10 mg tablet 10 mg PO BID #180 tab 09/29/17 Spironolactone 12.5 mg PO DAILY 11/25/17 Aspirin E.C. [Ecotrin] 81 mg PO DAILY@0800 tablet 11/27/17 Carvedilol [Coreg (Beta Telma)] 25 mg PO BID tablet 11/27/17 Dofetilide [Tikosyn] 250 mcg PO Q12 #60 cap 11/27/17 Fluoxetine [Prozac] 40 mg PO DAILY capsule 11/27/17 Lisinopril [Zestril] 10 mg PO BID tablet 11/27/17 Magnesium Oxide [Mag-Ox 400] 400 mg PO BIDCM tablet 11/27/17 Spironolactone [Aldactone] 12.5 mg PO DAILY tablet 11/27/17 The following prescriptions were given: Dofetilide [Tikosyn] 250 mcg PO Q12 #60 cap Primary Care Physician: Jj Alcala MD [Primary Care Provider] - Please Follow Up With: Festus Hope MD When: To be arranged by [facility] Proposed Discharge Date: 11/27/17
[2017-11-27 14:05] VITALS: BP 111/71; PULSE 72; RESP 16; O2SAT 96
--- NOTE | 2017-11-27 17:44 | PCM.DC.SUM ---
Discharge Date and Diagnosis Date of Admission: 11/25/17 Date of Discharge: 11/27/17 - Primary Discharge Diagnosis Encounter for antiarrhythmic medication initiation and monitoring - Secondary Discharge Diagnosis Chronic Problems (Last Reviewed 08/27/17 @ 15:24 by Joseline Johnson) Cardiomyopathy (Chronic) Ventricular ectopy (Chronic) Automatic implantable cardiac defibrillator in situ (Chronic) Primary idiopathic hypertrophic cardiomyopathy (Chronic) Paroxysmal ventricular tachycardia (Chronic) Congestive heart failure with left ventricular systolic dysfunction (Chronic) Nonrheumatic mitral valve disorder (Chronic) Hospital Course and Treatment Operations: None Procedures: None Summary of Care Provided: The patient is a 41 year old white female with the aforementioned diagnosis who presents for an encounter for antiarrhythmic medication initiation monitoring. As per the H&P she has been undergoing outpatient cardiovascular evaluation locally and by electrophysiology at [facility]. On her ongoing evaluation care she was brought to the hospital for initiation of antiarrhythmic therapy with dofetilide/Tikosyn. During her hospital stay she was monitored with cardiac rhythm monitoring and with repeat ECGs. She was started on dofetilide/Tikosyn at 250 mcg p.o. twice daily. She appeared without obvious adverse side effect from a clinical standpoint or an objective standpoint. She did not appear to have any pro arrhythmic adverse events. She continued to be followed for any other changes with her underlying cardiovascular status. She continued her cardiovascular medical therapy. On 11/27/2017, after having been monitored in the hospital for a minimum of 5 doses of dofetilide/Tikosyn over a 3 day with cardiac rhythm monitoring and ECG follow-up with no obvious adverse side effects it was elected to release the patient home for continued outpatient cardiovascular follow-up. [] Discharge Activity: Return to Normal Activity Return to work on:: 11/28/17 May shower in (days): 1 May resume sexual activity in: No Restrictions Weight Bearing Status: Weight bearing as tolerated Call your doctor if you observe: Fainting spells, Increased palpitations (irregular heartbeat) Additional Dressing/Incision Instructions:: [facility] to arrange follow up office visit and outpatient ECG Home Medications: Medications to take at Discharge Fluoxetine HCl 40 mg PO DAILY 11/14/16 ascorbic acid (vitamin C) 500 mg tablet 500 mg PO DAILY 08/26/17 aspirin 81 mg tablet,delayed release 81 mg PO DAILY 08/26/17 carvedilol 25 mg tablet 25 mg PO BID tab 08/26/17 cholecalciferol (vitamin D3) 2,000 unit capsule 2,000 unit PO DAILY cap 08/26/17 coenzyme Q10 200 mg capsule 200 mg PO DAILY 08/26/17 magnesium oxide 400 mg capsule 400 mg PO BID cap 08/26/17 multivitamin tablet 1 tab PO DAILY 08/26/17 vitamin B complex tablet 1 tab PO DAILY 08/26/17 lisinopril 10 mg tablet 10 mg PO BID #180 tab 09/29/17 Spironolactone 12.5 mg PO DAILY 11/25/17 Aspirin E.C. [Ecotrin] 81 mg PO DAILY@0800 tablet 11/27/17 Carvedilol [Coreg (Beta Telma)] 25 mg PO BID tablet 11/27/17 Dofetilide [Tikosyn] 250 mcg PO Q12 #60 cap 11/27/17 Fluoxetine [Prozac] 40 mg PO DAILY capsule 11/27/17 Lisinopril [Zestril] 10 mg PO BID tablet 11/27/17 Magnesium Oxide [Mag-Ox 400] 400 mg PO BIDCM tablet 11/27/17 Spironolactone [Aldactone] 12.5 mg PO DAILY tablet 11/27/17 Following Prescrptions Were Given to Patient: Dofetilide [Tikosyn] 250 mcg PO Q12 #60 cap Primary Care Physician: Jj Alcala MD [Primary Care Provider] - Please Follow Up With: Festus Hope MD When: To be arranged by [facility] Disposition: Home Minutes spent on discharge:: 30 Patient Condition:: Stable Medical Necessity - Tobacco Use Smoking Status: Never smoker Meaningful Use Info Meaningful Use Diagnoses (Choose all that apply): None applicable
== END 2017-11-27 14:22 | disposition home or self-care (01) | DRG 949 ==
PROVIDERS: Admitting Provider Internal Medicine Cardiovascular Disease; Family Provider Family Medicine; PCP Family Medicine; Visit Provider Internal Medicine Cardiovascular Disease
DX: Z51.81 Encounter for therapeutic drug level monitoring (principal); I42.2 Other hypertrophic cardiomyopathy; I47.2 Ventricular tachycardia; I50.22 Chronic systolic (congestive) heart failure; I49.3 Ventricular premature depolarization; Z95.810 Presence of automatic (implantable) cardiac defibrillator; Z79.899 Other long term (current) drug therapy
CPT/HCPCS: 36415; 80048; 83735; 85027; 93005; A4216

== ENCOUNTER → 2017-12-29 15:08 | Outpatient (CLI) | payer OTHER, SELFPAY | PROVIDERS: Family Provider Family Medicine; PCP Family Medicine; Visit Provider Internal Medicine Cardiovascular Disease | DX: I47.2 Ventricular tachycardia (principal); I34.9 Nonrheumatic mitral valve disorder, unspecified; I49.3 Ventricular premature depolarization; I50.20 Unspecified systolic (congestive) heart failure | CPT/HCPCS: 93225; 93226 ==

== ENCOUNTER → 2018-05-23 08:06 | Outpatient (CLI) | payer OTHER, SELFPAY ==
[2018-05-23 08:33] LABS: Absolute Lymphocyte Count 1.75 X10^3/ul (0.83-4.51); Absolute Neutrophil Count 3.1 X10^3/uL (2.0-7.7); Basophil# 0.03 X10^3/uL; Basophil% 0.5 % (0-1); Eosinophil# 0.23 X10^3/uL; Eosinophils% 4.1 % (0-5); Hematocrit 36.6 % (37-47); Hemoglobin 11.7 g/dl (12.0-15.0); Lymphocyte # 1.75 X10^3/ul (4.0); Mean Corpuscular Volume 96.8 fL (81-99); Mean Platelet Vol. 11.5 fl (6.2-12.0); Monocyte% 8.9 % (0-10); Neutrophil # 3.12 X10^3/uL (2.7-7.7); Neutrophil % 55.3 % (47-70); Platelet Count 236 K/mm3 (150-450); RBC Distribution Width CV 12.8 % (11.6-14.6); RBC Distribution Width SD 43.9 fl (35.1-43.9); Red Blood Count 3.78 M/mm3 (4.2-5.4); White Blood Count 5.6 K/mm3 (4.4-11.0)
[2018-05-23 08:35] LABS: POSITIVE COUNT NO; POSITIVE DIFFERENTIAL NO; POSITIVE MORPHOLOGY NO
[2018-05-23 09:20] LABS: Hemoglobin A1c 5.6 % (4.2-6.3)
[2018-05-23 09:23] LABS: ALB/GLOB Ratio 0.9 RATIO (0.9-2.4); AST(SGOT) 12 U/L (15-37); Alanine Aminotransfer ALT/SGPT 22 U/L (13-56); Albumin, Serum 3.3 g/dL (3.2-5.0); Alkaline Phosphatase 97 U/L (45-117); Anion Gap 6 (5-15); BUN 14 mg/dL (7-18); BUN/Creat Ratio 16.7 RATIO (10-20); Calcium,Total 7.8 mg/dL (8.5-10.1); Chloride 108 mmol/L (98-107); Cholesterol 173 mg/dL (200); Creatinine, Serum 0.84 mg/dL (0.55-1.02); EST Glomerular Filtration Rate 79 mL/min (>60); Est Glom Filt Rate - Afr Amer 96 mL/min (>60); Globulin 3.5 g/dL (2.2-4.2); Glucose 93 mg/dL (74-106); High Density Lipoprotein 59 mg/dL; Potassium 4.5 mmol/L (3.5-5.1); Protein, Total 6.8 g/dL (6.4-8.2); Sodium Level 140 mmol/L (136-145); Thyroid Stim Hormone (TSH) 0.29 uIU/mL (0.358-3.74); Triglycerides 95 mg/dL; Very Low Density Lipoprotein 19 mg/dL (5-40)
== END ==
LOC: LAB 08:07
PROVIDERS: Family Provider Family Medicine; PCP Family Medicine; Referring Provider Family Medicine; Visit Provider Family Medicine
DX: I42.0 Dilated cardiomyopathy (principal); E66.9 Obesity, unspecified; Z68.34 Body mass index [BMI] 34.0-34.9, adult
CPT/HCPCS: 36415; 80053; 80061; 83036; 84443; 85025

== ENCOUNTER → 2018-10-12 15:16 | Outpatient (CLI) | payer OTHER, SELFPAY ==
[2018-09-03 16:24] VITALS: BMI 37.2
--- NOTE | 2018-10-12 15:19 | ECHOD_ITS ---
Reason For Study: Increasing PVC Procedure This was a 2D Doppler, Color Flow transthoracic echocardiogram. The study was technically difficult. Exam performed in department. Left Ventricle Mildly dilated left ventricle. Mild to moderate global left ventricular systolic dysfunction. The estimated ejection fraction is 35 %. No evidence for diastolic dysfunction. Right Ventricle Normal RV size. ICD or pacer leads identified within the right ventricle. Normal systolic function. Atria The left atrium is mildly enlarged. Normal right atrium. ICD or pacer leads identified within the right atrium. No doppler evidence for ASD. Mitral Valve There is no mitral annular calcification. Mild papillary muscle dysfunction of the mitral valve. Trivial mitral valve insufficiency. Tricuspid Valve Normal tricuspid valve. Trivial tricuspid valve insufficiency. Right ventricular systolic pressure estimated to be 30 mmHg. Aortic Valve Trisinus/trileaflet aortic valve. Normal aortic valve. Pulmonic Valve The pulmonic valve is not well visualized. Great Vessels The aortic root is not well visualized. Pericardium/Pleural No pericardial effusion. MMode/2D Measurements & Calculations LVIDd: 5.1 cm IVSd: 1.0 cm Ao root diam: 2.7 cm LVIDs: 4.5 cm LVPWd: 0.97 cm LA dimension: 3.8 cm RVDd: 3.1 cm FS: 12.5 % LAV(MOD-bp): 61.5 ml LA A4 area: 22.4 cm2 RA A4 area: 11.4 cm2 LAV(MOD-bp) Indexed: 34.4 ml/m2 LAV(MOD-sp2): 47.2 ml LAV(MOD-sp4): 74.7 ml Time Measurements MV dec time: 0.23 sec Doppler Measurements & Calculations MV E max quinn: 106.5 cm/sec Lat Peak E' Quinn: 10.9 cm/sec Med Peak E' Quinn: 9.8 cm/sec MV A max quinn: 60.1 cm/sec E/E' lat: 9.8 E/E' med: 10.9 MV E/A: 1.8 MV V2 max: 119.3 cm/sec MV P1/2t max quinn: 119.8 cm/sec Ao V2 max: 135.9 cm/sec MV max P.7 mmHg MV P1/2t: 89.5 msec Ao max P.4 mmHg MV V2 mean: 65.9 cm/sec MV dec slope: 392.2 cm/sec2 MV mean P.1 mmHg MVA(P1/2t): 2.5 cm2 MV V2 VTI: 33.3 cm LV V1 max: 95.9 cm/sec PA V2 max: 104.9 cm/sec TR max quinn: 259.5 cm/sec LV V1 max P.7 mmHg TR max P.1 mmHg Interpretation Summary The study was technically difficult. Mildly dilated left ventricle. Mild to moderate global left ventricular systolic dysfunction. The estimated ejection fraction is 35 %. The left atrium is mildly enlarged. Mild papillary muscle dysfunction of the mitral valve. Trivial mitral valve insufficiency. Trivial tricuspid valve insufficiency. Right ventricular systolic pressure estimated to be 30 mmHg. No evidence for diastolic dysfunction. ICD or pacer leads identified within the right atrium ICD or pacer leads identified within the right ventricle. Ordering Physician: Haider Pan Referring Physician: Haider Pan Performed By: Bert Floyd RCS
== END ==
LOC: CVS 15:19
PROVIDERS: Family Provider Family Medicine; PCP Family Medicine; Referring Provider Nurse Practitioner Family; Visit Provider Nurse Practitioner Family
DX: I42.9 Cardiomyopathy, unspecified (principal); I49.3 Ventricular premature depolarization
CPT/HCPCS: 93306

== ENCOUNTER → 2019-06-14 12:33 | Outpatient (CLI) | payer OTHER, SELFPAY ==
[2019-06-09 10:26] VITALS: BMI 35.9
[2019-06-14 13:29] LABS: AST(SGOT) 12 U/L (15-37); Alanine Aminotransfer ALT/SGPT 20 U/L (13-56); Albumin, Serum 3.5 g/dL (3.2-5.0); Alkaline Phosphatase 90 U/L (45-117); Anion Gap 7 (5-15); BUN 10 mg/dL (7-18); BUN/Creat Ratio 13.1 RATIO (10-20); Bilirubin, Direct 0.17 mg/dL (0.00-0.30); Calcium,Total 8.4 mg/dL (8.5-10.1); Chloride 106 mmol/L (98-107); Cholesterol 172 mg/dL (200); Creatinine, Serum 0.76 mg/dL (0.55-1.02); EST Glomerular Filtration Rate 88 mL/min (>60); Est Glom Filt Rate - Afr Amer 106 mL/min (>60); Globulin 3.6 g/dL (2.2-4.2); Glucose 91 mg/dL (74-106); High Density Lipoprotein 65 mg/dL; Potassium 3.7 mmol/L (3.5-5.1); Protein, Total 7.1 g/dL (6.4-8.2); Sodium Level 140 mmol/L (136-145); T4 Total, Thyroxin 7.8 ug/dL (4.8-13.9); Thyroid Stim Hormone (TSH) 0.28 uIU/mL (0.358-3.74); Triglycerides 74 mg/dL; Very Low Density Lipoprotein 15 mg/dL (5-40)
== END ==
PROVIDERS: Family Provider Family Medicine; PCP Family Medicine; Referring Provider Internal Medicine Cardiovascular Disease; Visit Provider Internal Medicine Cardiovascular Disease
DX: I42.9 Cardiomyopathy, unspecified (principal); I49.3 Ventricular premature depolarization; R55 Syncope and collapse; I50.20 Unspecified systolic (congestive) heart failure; Z95.810 Presence of automatic (implantable) cardiac defibrillator
CPT/HCPCS: 36415; 80048; 80061; 80076; 84436; 84443

== ENCOUNTER → 2020-01-10 16:51 | Outpatient (CLI) | payer OTHER, SELFPAY ==
[2020-01-10 15:03] VITALS: BMI 35.3
[2020-01-10 18:18] LABS: Anion Gap 7 (5-15); BUN 14 mg/dL (7-18); BUN/Creat Ratio 18.1 RATIO (10-20); Calcium,Total 8.5 mg/dL (8.5-10.1); Chloride 105 mmol/L (98-107); Creatinine, Serum 0.77 mg/dL (0.55-1.02); EST Glomerular Filtration Rate 86 mL/min (>60); Est Glom Filt Rate - Afr Amer 104 mL/min (>60); Glucose 93 mg/dL (74-106); Sodium Level 138 mmol/L (136-145)
== END ==
PROVIDERS: PCP Family Medicine; Visit Provider Internal Medicine Cardiovascular Disease
DX: I42.9 Cardiomyopathy, unspecified (principal); I50.20 Unspecified systolic (congestive) heart failure; I47.2 Ventricular tachycardia; R55 Syncope and collapse; I34.9 Nonrheumatic mitral valve disorder, unspecified; Z95.810 Presence of automatic (implantable) cardiac defibrillator
CPT/HCPCS: 36415; 80048

== ENCOUNTER → 2020-11-24 14:10 | Outpatient (CLI) | payer OTHER, SELFPAY ==
[2020-07-31 09:00] VITALS: BMI 35.3
[2020-11-24 15:39] LABS: Absolute Lymphocyte Count 2.35 X10^3/uL (0.83-4.51); Absolute Neutrophil Count 5.4 X10^3/uL (2.0-7.7); Basophil# 0.06 X10^3/uL; Basophil% 0.7 % (0-1); Eosinophil# 0.27 X10^3/uL; Hematocrit 38.8 % (37-47); Hemoglobin 12.3 g/dL (12.0-15.0); Lymphocyte # 2.35 X10^3/ul (0.83-4.51); Lymphocyte % 25.7 % (19-41); Mean Corp Hgb Conc 31.7 g/dL (32-36); Mean Corpuscular Hgb 29.8 pg (27.0-32.0); Mean Corpuscular Volume 93.9 fL (81-99); Mean Platelet Vol. 11.9 fl (6.2-12.0); Monocyte# 0.98 X10^3/uL; Monocyte% 10.7 % (0-10); NRBC Flagged by Analyzer 0 % (0-5); Neutrophil # 5.44 X10^3/uL (2.7-7.7); Neutrophil % 59.6 % (47-70); Platelet Count 255 K/mm3 (150-450); RBC Distribution Width CV 12.5 % (11.6-14.6); RBC Distribution Width SD 43.3 fl (35.1-43.9); Red Blood Count 4.13 M/mm3 (4.2-5.4); White Blood Count 9.1 K/mm3 (4.4-11.0)
[2020-11-24 16:05] LABS: Hemoglobin A1c 5.3 % (3.8-5.6)
[2020-11-24 16:21] LABS: Vitamin D,25 Hydroxy 26.4 ng/mL
[2020-11-24 16:45] LABS: ALB/GLOB Ratio 1.1 RATIO (0.9-2.4); AST(SGOT) 13 U/L (15-37); Alanine Aminotransfer ALT/SGPT 23 U/L (13-56); Albumin, Serum 3.5 g/dL (3.2-5.0); Alkaline Phosphatase 91 U/L (45-117); Anion Gap 6 (5-15); BUN 18 mg/dL (7-18); BUN/Creat Ratio 24.7 RATIO (10-20); Calcium,Total 9.5 mg/dL (8.5-10.1); Chloride 106 mmol/L (98-107); Creatinine, Serum 0.73 mg/dL (0.55-1.02); EST Glomerular Filtration Rate 92 mL/min (>60); Est Glom Filt Rate - Afr Amer 111 mL/min (>60); Globulin 3.2 g/dL (2.2-4.2); Glucose 99 mg/dL (74-106); Potassium 4.4 mmol/L (3.5-5.1); Protein, Total 6.7 g/dL (6.4-8.2); Sodium Level 139 mmol/L (136-145); Thyroid Stim Hormone (TSH) 0.47 uIU/mL (0.358-3.74)
== END ==
PROVIDERS: PCP Family Medicine; Referring Provider Registered Nurse; Visit Provider Registered Nurse
DX: R63.4 Abnormal weight loss (principal)
CPT/HCPCS: 36415; 80053; 82306; 83036; 84443; 85025

== ENCOUNTER → 2020-12-22 11:17 | Outpatient (CLI) | payer OTHER, SELFPAY ==
[2020-07-31 09:00] VITALS: BMI 35.3
--- NOTE | 2020-12-22 | CER_PTH ---
PATIENT: SHAN REN LOC: [facility] U#:[id number] AGE/SX: 49/F ROOM: RE12/22/[address]: Dr. Haider Duncan MD : 1975 BED: DIS: SPEC #: [id number] RECD: 12/22/20 12:36 STATUS: FAISAL HASKINS #: [id number] GIACOMO: 12/22/20 00:[address]: Haider Duncan DEPT: SURGICAL PATHOLOGY RECD BY: David Le ENTERED: 12/22/20 12:37 SP TYPE: CERV OTHR DR: Dr. Jj Alcala MD Tissues: Uterine cervix, NOS Procedures: Surgery Specimen Level IV HEADER OPERATION: Polyp removal PRE-OP DIAGNOSIS: Cervical polyp TISSUE SUBMITTED: Cervical polyp MICROSCOPIC DIAGNOSIS Cervical polyp, biopsy: Fragments of endometrial adenocarcinoma, endometrioid type, FIGO grade I. Fragments of benign endocervix. Rare fragments of benign squamous mucosa. See comment. AM:rachel 12/25/2020 COMMENT Immunohistochemistry ([id number]) supports the above diagnosis. Case has been reviewed in consultation with Dr. Lomax who concurs with the above diagnosis. IDC:CHRISTIAN MICROSCOPIC DESCRIPTION Slides are reviewed. GROSS DESCRIPTION Received in fixative is one container labeled with the patient's name and designated cervical polyp. The specimen consists of multiple irregular fragments of keith soft tissue mixed with mucoid tissue that in aggregate measure 2.5 x 2.5 x 0.2 cm. The specimen is totally submitted in one cassette. / CHRISTIAN:rachel 12/22/20 TC:0 CPT: 35057
--- NOTE | 2020-12-22 | IMM_PTH ---
PATIENT: SHAN REN LOC: [facility] U#:[id number] AGE/SX: 49/F ROOM: RE12/22/[address]: Dr. Haider Duncan MD : 1975 BED: DIS: SPEC #: [id number] RECD: 12/26/20 09:23 STATUS: FAISAL REQ #: [id number] GIACOMO: 12/22/20 00:[address]: Haider Duncan DEPT: IMMUNOHISTOCHEMISTRY RECD BY: Magalie Agudelo ENTERED: 12/26/20 09:25 SP TYPE: IMMUNO OTHR DR: Dr. Jj Alcala MD Tissues: Uterine cervix, NOS Procedures: MSH2 (add) MLH-1 (add) MSH6 (add) Anti-PMS2 (add) CEA (add) CK20 (add) CK7 (add) CK8 (add) RODRÍGUEZ (add) KI-67 (add) P53 (add) OH (add) Vimentin (add) 34BE12 (add) ER (initial) PHYSICIAN & INSTITUTION [address] [address] SPECIMEN INFORMATION: Tissue Source: Cervical polyp Clinical Info: Cervical polyp Specimen Number: [id number] CPT code: 92009, 38199 x14 METHODOLOGY: Deparaffinized sections of prefer/formalin-fixed tissue or PAP/DQ stained slides are incubated with monoclonal/polyclonal antibodies/oligonucleotide probes. Localization is made via biotin free immunoperoxidase method. Appropriate controls are performed and reacted as expected. Results on target cell population are indicated in the following table: RESULTS: ANTIBODY / CLONE RESULT ER (6F11) positive OH (1E2) positive CK7 (OV-TL12/30) positive CK8 (39cbcnT52) positive CK20 (KS20.8) negative Vimentin (V9) positive 34BE12 (34BE12) positive, focal RODRÍGUEZ (E29) positive CEA (11-7/TF-3HB-1) negative Ki-67 (30-9) positive, low P53 (DO-7) positive, 3% MLH-1 (M1) positive MSH2 (25D12) positive MSH6 (44) positive PMS2 (SVW0575) positive These tests were developed and their performance characteristics determined by [facility]. They may not have been cleared or approved by the U.S. Food and Drug Administration. The FDA has determined that such clearance or approval is not necessary. The above immunohistochemical/dualISH markers are ordered and reviewed by the Pathologist. INTERPRETATION: Cervical polyp, biopsy: Endometrial adenocarcinoma. Result of Microsatellite Instability Study: Negative (no loss of mismatch protein; no microsatellite instability detected). AM:rachel 12/26/2020
[2020-12-26 18:53] LABS: HPV Reflexed? NOT INDICATED
== END ==
PROVIDERS: PCP Family Medicine; Visit Provider Obstetrics & Gynecology
DX: Z12.4 Encounter for screening for malignant neoplasm of cervix (principal); N84.1 Polyp of cervix uteri
CPT/HCPCS: 88175; 88305; 88341; 88342; G0145

== ENCOUNTER → 2021-01-16 16:30 | Outpatient (CLI) | payer OTHER, SELFPAY ==
[2020-12-29 14:06] VITALS: BMI 35.3
[2021-01-16 16:38] LABS: Bacteria 0 SEEN /hpf (None Seen); Mucous, Urine 0 SEEN /hpf (<or=2+); Squamous Epithelial Cells - UA 0 SEEN /hpf (5-10); White Blood Cells 0 SEEN /hpf (0-5)
[2021-01-16 17:42] LABS: Absolute Lymphocyte Count 1.42 X10^3/uL (0.83-4.51); Absolute Neutrophil Count 5.9 X10^3/uL (2.0-7.7); Basophil# 0.05 X10^3/uL; Basophil% 0.6 % (0-1); Eosinophil# 0.29 X10^3/uL; Eosinophils% 3.3 % (0-5); Hematocrit 36.3 % (37-47); Hemoglobin 11.5 g/dL (12.0-15.0); Lymphocyte # 1.42 X10^3/ul (0.83-4.51); Lymphocyte % 16.3 % (19-41); Mean Corp Hgb Conc 31.7 g/dL (32-36); Mean Corpuscular Hgb 30.7 pg (27.0-32.0); Mean Corpuscular Volume 96.8 fL (81-99); Mean Platelet Vol. 11.1 fl (6.2-12.0); Monocyte# 1.01 X10^3/uL; Monocyte% 11.6 % (0-10); NRBC Flagged by Analyzer 0 % (0-5); Neutrophil # 5.92 X10^3/uL (2.7-7.7); Neutrophil % 67.7 % (47-70); Platelet Count 289 K/mm3 (150-450); Red Blood Count 3.75 M/mm3 (4.2-5.4); White Blood Count 8.7 K/mm3 (4.4-11.0)
[2021-01-16 18:13] LABS: Color, Urine Yellow (Yellow); Glucose, Dipstick Normal (Normal); Ketone-Dipstick Negative (Negative); Leukocyte Esterase-Dipstick Negative /ul (Negative); Nitrite-Dipstick Negative (Negative); Occult Blood-Urine 10 /ul (Negative); Protein-Dipstick Negative (Negative); Specific Gravity, Urine 1.025 (1.002-1.030); Urine Bilirubin Dipstick Negative (Negative); Urine Clarity Clear (Clear); Urine Urobilinogen Normal (Normal)
[2021-01-16 18:23] LABS: AST(SGOT) 25 U/L (15-37); Alanine Aminotransfer ALT/SGPT 46 U/L (13-56); Albumin, Serum 3.4 g/dL (3.2-5.0); Alkaline Phosphatase 119 U/L (45-117); Anion Gap 6 (5-15); BUN 27 mg/dL (7-18); Calcium,Total 8.6 mg/dL (8.5-10.1); Chloride 105 mmol/L (98-107); Creatinine, Serum 0.96 mg/dL (0.55-1.02); EST Glomerular Filtration Rate 66 mL/min (>60); Est Glom Filt Rate - Afr Amer 80 mL/min (>60); Globulin 3.5 g/dL (2.2-4.2); Glucose 90 mg/dL (74-106); Magnesium 1.9 mg/dL (1.6-2.6); Potassium 4.1 mmol/L (3.5-5.1); Protein, Total 6.9 g/dL (6.4-8.2); Sodium Level 138 mmol/L (136-145)
[2021-01-16 18:29] LABS: Red Blood Cells-Urine 0-5 SEEN /hpf (0-5)
== END ==
PROVIDERS: PCP Family Medicine; Referring Provider Family Medicine; Visit Provider Family Medicine
DX: R55 Syncope and collapse (principal)
CPT/HCPCS: 36415; 80053; 81001; 83735; 85025; 87086

== ENCOUNTER → 2021-04-23 16:20 | Outpatient (CLI) | payer OTHER, SELFPAY ==
[2020-07-31 09:00] VITALS: BMI 35.3
--- NOTE | 2021-04-23 16:25 | BI_ITS ---
MAMMOGRAPHY - BILATERAL SCREENING REASON FOR EXAM: Female, 45 years old. Routine annual screening examination. PERTINENT HISTORY: Non-contributory. TECHNIQUE: Digital bilateral breast omar (3D mammographic acquisition) in the CC and MLO projections. 2-D mediolateral oblique (MLO) and craniocaudad (CC) views of both breasts were obtained. CAD: Full Field Digital Mammography with Computer Added Detection was performed. COMPARISON: None. Baseline examination. FINDINGS: Breast Composition: There are scattered areas of fibroglandular density. There are no dominant masses or suspicious calcifications. No other significant abnormalities are identified. BI/SCRN MAMM (CAD)W/OMAR BILAT IMPRESSION: Negative screening mammogram. Yearly followup mammogram recommended. (A) ASSESSMENT CATEGORY: BIRADS Category 1: Negative. A letter regarding these results will be sent to the patient by the facility within 30 days. Approximately 10% of breast cancers are not detected by mammography. A normal mammogram should not delay biopsy of a clinically suspicious abnormality. [id number] Electronically Signed: Usman Valdivia MD at 8:05 EDT , Service support ,
== END ==
PROVIDERS: PCP Family Medicine; Referring Provider Obstetrics & Gynecology; Visit Provider Obstetrics & Gynecology
DX: Z12.31 Encounter for screening mammogram for malignant neoplasm of breast (principal)
CPT/HCPCS: 77063; 77067

== ENCOUNTER → 2024-08-02 | Outpatient (CLI) | payer BC, SELFPAY ==
[2024-08-02 16:30] LABS: Absolute Lymphocyte Count 1.81 X10^3/uL (0.83-4.51); Absolute Neutrophil Count 3.6 X10^3/uL (2.0-7.7); Basophil# 0.08 X10^3/uL; Basophil% 1.3 % (0-1); Eosinophil# 0.34 X10^3/uL; Eosinophils% 5.3 % (0-5); Hematocrit 41.7 % (37-47); Hemoglobin 13.5 g/dL (12.0-15.0); Lymphocyte # 1.81 X10^3/ul (0.83-4.51); Lymphocyte % 28.3 % (19-41); Mean Corp Hgb Conc 32.4 g/dL (32-36); Mean Corpuscular Hgb 30.1 pg (27.0-32.0); Mean Corpuscular Volume 93.1 fL (81-99); Mean Platelet Vol. 11.4 fl (6.2-12.0); Monocyte# 0.57 X10^3/uL; Monocyte% 8.9 % (0-10); NRBC Flagged by Analyzer 0 % (0-5); Neutrophil % 56.2 % (47-70); Platelet Count 269 K/mm3 (150-450); RBC Distribution Width CV 12.9 % (11.6-14.6); RBC Distribution Width SD 44.2 fl (35.1-43.9); Red Blood Count 4.48 M/mm3 (4.2-5.4); White Blood Count 6.4 K/mm3 (4.4-11.0)
== END | disposition home or self-care (01) ==
LOC: LAB 15:39
PROVIDERS: PCP Family Medicine; Referring Provider Nurse Practitioner Acute Care; Visit Provider Nurse Practitioner Acute Care
DX: K62.5 Hemorrhage of anus and rectum (principal)
CPT/HCPCS: 36415; 85025

== ENCOUNTER 2024-09-13 05:16 | Day surgery (SDC) | payer BC, SELFPAY ==
--- NOTE | 2024-09-09 18:45 | PAT.ANE_ITS ---
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 When Was Last Pacemaker Check QUESTION #4 FULL TEXT: You/Your Family Experience fever (hyperthermia) with Anesthesia Last Oral Intake Last Oral intake: Last Oral Intake NPO since Meds taken in AM with sips of water? Meds patient instructed to take am of surgery PONV PONV - deputy prosecuting attorney: PONV - deputy prosecuting attorney Female Yes 09/09/24 14:56 HX of Motion Sickness No 09/09/24 14:56 HX of N/V After Surgery No 09/09/24 14:56 Non-Smoker Yes 09/09/24 14:56 Duration of Surgery greater No 09/09/24 14:56 than 60 minutes Number of Risk Factors 2 09/09/24 14:56 PONV Score Moderate Risk 09/09/24 14:56 Height & Weight Height & Weight: Anesthesia: Height & Weight Height 5 ft 1 in 08/02/24 14:38 Respiratory Assessment Respiratory Assessment - deputy prosecuting attorney: Respiratory Tract Infection Hx - deputy prosecuting attorney Hx Respiratory Tract Infection No 09/09/24 14:56 STOP Sleep Apnea STOP Sleep Apnea - deputy prosecuting attorney: STOP Sleep Apnea - deputy prosecuting attorney Hx Hypertension Yes: CONTROLLED WITH MEDS 09/09/24 14:56 Hx Sleep Apnea No 09/09/24 14:56 CPAP BIPAP Do you snore loudly (louder No 09/09/24 14:56 than talking or can be heard Do you often feel tired/ No 09/09/24 14:56 fatigued/ sleepy during daytime? Has anyone observed you stop No 09/09/24 14:56 breathing during sleep? STOP Results Negative 09/09/24 14:56 QUESTION #5 FULL TEXT : Do you snore loudly (louder than talking or can be heard through closed doors)? 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 Specify any problems Hx of Preganancy in last 3 No 09/09/24 14:56 Months Nurse Filling Out Transfusion [email or web address] 09/09/24 14:56 & Questions: Date: 09/09/24 09/09/24 14:56 Time: 14:59 09/09/24 14:56 Patient unable to answer at this time (ie. confused, unrespo /Reproduction History /Reproductive History - deputy prosecuting attorney: /Reproductive Hx- deputy prosecuting attorney Hx Now No 09/09/24 14:56 Gestational Age (in weeks): EDC: Hx Hx Para Hx Section SAB No 09/09/24 14:56 PFSH Medical History (Updated 09/09/24 @ 15:05 by Bonifacio Fields) CHF (congestive heart failure) Alcohol use Wears glasses Blackout Gastric reflux Non-smoker History of echocardiogram Cardiology follow-up encounter Uterine cancer Noncompaction cardiomyopathy Cardiomyopathy Encounter for monitoring anti-arrhythmic therapy Ventricular ectopy Syncope Automatic implantable cardiac defibrillator in situ (~05/12/13) Primary idiopathic hypertrophic cardiomyopathy Paroxysmal ventricular tachycardia Other disorders of papillary muscle Congestive heart failure with left ventricular systolic dysfunction Nonrheumatic mitral valve disorder Family history of hypertension Ventricular premature depolarization Home Medications ?Medication ?Instructions ?Recorded ?Last Taken ?Type ascorbic acid (vitamin C) 500 mg 500 mg PO DAILY 08/2611/25/17 History tablet cholecalciferol (vitamin D3) 50 2,000 unit PO DAILY 11/25/17 History mcg (2,000 unit) capsule magnesium oxide 400 mg PO BID 08/26/1711/25 History multivitamin 1 tab PO DAILY 08/26/1711/09 History vitamin B complex (B 1 tab PO DAILY 08/26/1711/09 History Complex-Vitamin B12 tablet) dofetilide 250 mcg capsule See Rx Instructions .Route 07/02/23 Unknown Rx .COMPLEX #180 caps dapagliflozin propanediol 10 mg 10 mg PO QDAY #30 tabs 06/23/24 09/09/24 Rx tablet (Farxiga) pantoprazole 40 mg tablet,delayed 40 mg PO QDAY #90 ta bs 08/02/24 Unknown Rx release spironolactone 25 mg tablet 12.5 mg PO QDAY 08/02/24 U nknown History carvedilol 25 mg tablet 25 mg PO .COMPLEX #180 tabs 08/05/24 Unknown Rx sacubitril 97 mg-valsartan 103 mg 1 tab PO BID 5 Unknown History tablet (Entresto) Allergy/AdvReac Type Severity Reaction Status Date / Time Sulfa (Sulfonamide AdvReac Severe Unknown Verified 09/09/24 14:52 Antibiotics) Family History Mother Diabetes Hypertension Thyroid cancer Father Hypertension Brother Hypertension Surgical History H/O total hysterectomy Social History Smoking Status: Never smoker alcohol intake: current alcohol intake frequency: holidays/special occasions only substance use type: does not use caffeine: Yes Type: carbonated beverages Number of servings: 1 and coffee Number of servings: 1 Audit: Pertinent Findings Pertinent Findings EKG Perinent findings: December 29, 2020. Sinus rhythm within normal limits. Echo (EF%) pertinent findings: October 12, 2018. Ejection fraction 35%. Right ventricular systolic pressure is 30 mmHg. No aortic stenosis noted. February 16, 2021. Ejection fraction 40%. Mild MR and TR. Consult pertinent findings: December 06, 2021. Leopoldo ARCHULETA. 1. Cardiomyopathy-her most recent echocardiogram 02/16/2021 showed an ejection fraction of 40%. This is improved and stable from previous studies. 2. Congestive heart failure with left ventricular systolic dysfunction. EF 40% on the latest echo. 3. Paroxysmal ventricular tachycardia-this appears stable at this time. Patient denies any recent symptoms or events. 4. Automatic implantable cardiac defibrillator in situ. Device notes no recent atrial tachycardia/atrial fibrillation episodes. No recent ventricular tachycardia/ventricular fibrillation. 5. Nonrheumatic mitral valve disorder-latest echo shows only mild mitral regurgitation. Stable at this time. Additional pertinent findings: August 05, 2024. Latest ICD interrogation shows 0 ventricular tachycardia episodes. 0 ventricular fibrillation episodes. 0 atrial high rate episodes. Recommendation Anesthesia Recommendation Anesthesia recommendation: OPTIMIZED for anesthesia
[2024-09-13] VITALS (8 sets, daily range): BP systolic 101–122; BP diastolic 52–81; PULSE 57–88; RESP 16–20; TEMP 2.7–37; O2SAT 95–100; BMI 37.7
--- NOTE | 2024-09-13 06:30 | EGD_PTH ---
PATIENT: SHAN REN LOC: [facility] U#:[id number] AGE/SX: 48/F ROOM: RE09/13/[address]: Dr. Sampson Castro DO : 1975 BED: DIS: 09/13/2024 SPEC #: [id number] RECD: 09/13/24 10:43 STATUS: FAISAL RECesar #: [id number] GIACOMO: 09/13/24 06:[address]: Sampson Castro DEPT: SURGICAL PATHOLOGY RECD BY: Zainab Arias ENTERED: 09/13/24 11:13 SP TYPE: EGD BIOPSY GAUTAM DR: Dr. Jj Alcala MD Tissues: A - Esophagus, NOS B - Rectum, NOS Procedures: Special Stain Group I Surgery Specimen Level IV Alcian Blue/PAS (control) HEADER OPERATION: Colonoscopy with biopsy, EGD with biopsy PRE-OP DIAGNOSIS: Rectal bleeding, abdominal pain TISSUE SUBMITTED: A- Distal esophagus biopsy, B- Rectal polyp biopsy MICROSCOPIC DIAGNOSIS A. Distal esophagus, biopsy: Squamous and glandular mucosa showing focal chronic inflammation. Intestinal metaplasia / Morrison's esophagus (goblet cell metaplasia) is not identified. Negative for dysplasia. Squamous mucosa showing changes of acute reflux esophagitis. Negative for eosinophilic esophagitis. See comment. B. Rectal polyp, biopsy: Tubular adenoma. PW. 09/14/2024 COMMENT A. Alcian blue/PAS stain with matched control is used in the evaluation of the specimen and does not show any evidence of goblet cells and therefore no evidence of intestinal metaplasia / Morrison's esophagus. MICROSCOPIC DESCRIPTION Slides are reviewed. GROSS DESCRIPTION A. Received in fixative is one container labeled with the patient's name and designated Distal esophagus biopsy. The specimen consists of multiple irregular fragments of light keith soft tissue that in aggregate measure 1.2 x 0.3 x 0.2 cm. The specimen is totally submitted in one cassette. B. Received in fixative is one container labeled with the patient's name and designated Rectal polyp biopsy. The specimen consists of one irregular fragment of light keith soft tissue that measures 0.4 x 0.3 x 0.2 cm. The specimen is totally submitted in one cassette. 09/13/2024 TC:3 CPT:37409p4,68192
--- NOTE | 2024-09-13 06:36 | PRE.ANES_ITS ---
ASA Classification* ASA Classification ASA Classification: 3 Assessment & Plan Anesthesia* Anesthesia Assessment Anesthesia Assessment: Discussed sedation and/or anesthesia options, risks, benefits, and alternatives with patient/parents/legal guardian/POA. Questions invited. The patient/parents/legal guardian/POA seems to understand and agrees to proceed with anesthesia plan. Reviewed the physical assessment, medical history, allergy history and patient home medications list prior to surgery/procedure/anesthetic and documented any changes. Performed airway and anesthesia risk assessments. Anesthesia Type Anesthesia Type: MAC (EF 35, AICD) Anesthesia Focused Assessment* Temperature: 96.9 F Pulse Rate: 63 Blood Pressure: 122/77 Respiratory Rate: 16 Pulse Ox: 95 Airway Assessment Mouth opens: >3 cm Mallampati Score: II Focused Labs Anesthesia Preop lab: CBC WBC 6.4 K/mm3 (4.4-11.0) 08/02/24 15:45 08/02/24 RBC 4.48 M/mm3 (4.2-5.4) 08/02/24 15:45 08/02/24 Hgb 13.5 g/dL (12.0-15.0) 08/02/24 15:45 08/02/24 Hct 41.7 % (37-47) 08/02/24 15:45 08/02/24 Plt Count 269 K/mm3 (150-450) 08/02/24 15:45 08/02/24 CHEMISTRY Potassium 4.1 mmol/L (3.5-5.1) 01/16/21 16:36 01/16/21 Sodium 138 mmol/L (136-145) 01/16/21 16:36 01/16/21 Magnesium 1.9 mg/dL (1.6-2.6) 01/16/21 16:36 01/16/21 BUN 27 mg/dL (7-18) H 01/16/21 16:36 01/16/21 Creatinine 0.96 mg/dL (0.55-1.02) 01/16/21 16:36 01/16/21 Glucose 90 mg/dL (74-106) 01/16/21 16:36 01/16/21 TSH 0.47 uIU/mL (0.358-3.74) 11/24/20 14:18 COAG PT 14.1 SECONDS (11.9-14.4) 05/05/13 04:45 3 Pre-Assessment Diagnosis/Proposed Procedure Planned Operative Procedure(s): COLONOSCOPY, EGD Anesthesia History 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 When Was Last Pacemaker Check QUESTION #4 FULL TEXT: You/Your Family Experience fever (hyperthermia) with Anesthesia Last Oral Intake Last Oral intake: Last Oral Intake NPO since 17:00 09/13/24 05:53 Meds taken in AM with sips of Yes 09/13/24 05:53 water? Meds patient instructed to take am of surgery PONV PONV - commissions coordinator: PONV - commissions coordinator Female Yes 09/09/24 14:56 HX of Motion Sickness No 09/09/24 14:56 HX of N/V After Surgery No 09/09/24 14:56 Non-Smoker Yes 09/09/24 14:56 Duration of Surgery greater No 09/09/24 14:56 than 60 minutes Number of Risk Factors 2 09/09/24 14:56 PONV Score Moderate Risk 09/09/24 14:56 Height & Weight Height & Weight: Anesthesia: Height & Weight Height 5 ft 1 in 09/13/24 05:53 Weight: 90.537 kg 09/13/24 05:53 Body Mass Index (BMI) 37.7 09/13/24 05:53 Respiratory Assessment Respiratory Assessment - commissions coordinator: Respiratory Tract Infection Hx - commissions coordinator Hx Respiratory Tract Infection No 09/09/24 14:56 STOP Sleep Apnea STOP Sleep Apnea - commissions coordinator: STOP Sleep Apnea - commissions coordinator Hx Hypertension Yes: CONTROLLED WITH MEDS 09/09/24 14:56 Hx Sleep Apnea No 09/09/24 14:56 CPAP BIPAP Do you snore loudly (louder No 09/09/24 14:56 than talking or can be heard Do you often feel tired/ No 09/09/24 14:56 fatigued/ sleepy during daytime? Has anyone observed you stop No 09/09/24 14:56 breathing during sleep? STOP Results Negative 09/09/24 14:56 QUESTION #5 FULL TEXT : Do you snore loudly (louder than talking or can be heard through closed doors)? 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 Specify any problems Hx of Preganancy in last 3 No 09/09/24 14:56 Months Nurse Filling Out Transfusion [email or web address] 09/09/24 14:56 & Questions: Date: 09/09/24 09/09/24 14:56 Time: 14:59 09/09/24 14:56 Patient unable to answer at this time (ie. confused, unrespo /Reproduction History /Reproductive History - commissions coordinator: /Reproductive Hx- commissions coordinator Hx Now No 09/09/24 14:56 Gestational Age (in weeks): EDC: Hx Hx Para Hx Section SAB No 09/09/24 14:56 PFSH Medical History CHF (congestive heart failure) Alcohol use Wears glasses Blackout Gastric reflux Non-smoker History of echocardiogram Cardiology follow-up encounter Uterine cancer Noncompaction cardiomyopathy Cardiomyopathy Encounter for monitoring anti-arrhythmic therapy Ventricular ectopy Syncope Automatic implantable cardiac defibrillator in situ (~05/12/13) Primary idiopathic hypertrophic cardiomyopathy Paroxysmal ventricular tachycardia Other disorders of papillary muscle Congestive heart failure with left ventricular systolic dysfunction Nonrheumatic mitral valve disorder Family history of hypertension Ventricular premature depolarization Home Medications ?Medication ?Instructions ?Recorded ?Last Taken ?Type ascorbic acid (vitamin C) 500 mg 500 mg PO DAILY 08/2609/12/24 History tablet cholecalciferol (vitamin D3) 50 2,000 unit PO DAILY 09/12/24 History mcg (2,000 unit) capsule magnesium oxide 400 mg PO BID 08/26/1709/12 History multivitamin 1 tab PO DAILY 08/26/1710/05 History vitamin B complex (B 1 tab PO DAILY 08/26/1710/05 History Complex-Vitamin B12 tablet) dofetilide 250 mcg capsule See Rx Instructions .Route 07/02/23 09/13/24 05:00 Rx .COMPLEX #180 caps dapagliflozin propanediol 10 mg 10 mg PO QDAY #30 tabs 06/23/24 09/09/24 Rx tablet (Farxiga) pantoprazole 40 mg tablet,delayed 40 mg PO QDAY #90 ta bs 08/02/24 09/12/24 Rx release spironolactone 25 mg tablet 12.5 mg PO QDAY 08/02/24 0 09/12/24 History carvedilol 25 mg tablet 25 mg PO .COMPLEX #180 tabs 08/05/24 09/13/24 05:00 Rx sacubitril 97 mg-valsartan 103 mg 1 tab PO BID 5 09/13/24 05:00 History tablet (Entresto) Allergy/AdvReac Type Severity Reaction Status Date / Time latex Allergy Intermediate rash Verified 09/13/24 05:50 Sulfa (Sulfonamide AdvReac Severe Unknown Verified 09/13/24 05:50 Antibiotics) Family History Mother Diabetes Hypertension Thyroid cancer Father Hypertension Brother Hypertension Surgical History H/O total hysterectomy Social History Smoking Status: Never smoker alcohol intake: current alcohol intake frequency: holidays/special occasions only substance use type: does not use caffeine: Yes Type: carbonated beverages Number of servings: 1 and coffee Number of servings: 1 Review of Systems (Anesthesia) ROS Narrative System reviewed and no additional complaints, except as documented.
--- NOTE | 2024-09-13 06:47 | PCM.HP.STD ---
HPI - General General Date of Admission: 09/13/24 Date of Service: 09/13/24 Chief Complaint: Lower GI bleeding HPI Narrative SHAN REN, is a 48 F who presentsHANARCHANA REN, is a 48 F who presents for okay intermittent abdominal pain and lower GI bleeding - BRB on stools and tissue - intermittent - feels like my butt is ripping - she has a BM 2-3x a day - this is her baseline - stools are formed and can be hard - denies any prior colonoscopy - denies any family h/o colon CA or polyps - she does experience daily HB - worse at HS and after meals - Tums PRN - denies any prior EGD - denies any dysphagia - denies any N/V - weight stable - cardia history 2012 diagnosed with idiopathic cardiomyopathy - AICD battery changed 07/21/2024 - Entresto [facility], 1928–1983 Medical History CHF (congestive heart failure) Alcohol use Wears glasses Blackout Gastric reflux Non-smoker History of echocardiogram Cardiology follow-up encounter Uterine cancer Noncompaction cardiomyopathy Cardiomyopathy Encounter for monitoring anti-arrhythmic therapy Ventricular ectopy Syncope Automatic implantable cardiac defibrillator in situ (~05/12/13) Primary idiopathic hypertrophic cardiomyopathy Paroxysmal ventricular tachycardia Other disorders of papillary muscle Congestive heart failure with left ventricular systolic dysfunction Nonrheumatic mitral valve disorder Family history of hypertension Ventricular premature depolarization Home Medications ?Medication ?Instructions ?Recorded ?Last Taken ?Type ascorbic acid (vitamin C) 500 mg 500 mg PO DAILY 08/26/17 09/12/24 History tablet cholecalciferol (vitamin D3) 50 2,000 unit PO DAILY 08/26/17 09/12/24 History mcg (2,000 unit) capsule magnesium oxide 400 mg PO BID 08/26/17 09/12/24 History multivitamin 1 tab PO DAILY 08/26/17 09/12/24 History vitamin B complex (B 1 tab PO DAILY 08/26/17 09/12/24 History Complex-Vitamin B12 tablet) dofetilide 250 mcg capsule See Rx Instructions .Route 07/02/23 09/13/24 05:00 Rx .COMPLEX #180 caps dapagliflozin propanediol 10 mg 10 mg PO QDAY #30 tabs 06/23/24 09/09/24 Rx tablet (Farxiga) pantoprazole 40 mg tablet,delayed 40 mg PO QDAY #90 tabs 08/02/24 09/12/24 Rx release spironolactone 25 mg tablet 12.5 mg PO QDAY 08/02/24 09/12/24 History carvedilol 25 mg tablet 25 mg PO .COMPLEX #180 tabs 08/05/24 09/13/24 05:00 Rx sacubitril 97 mg-valsartan 103 mg 1 tab PO BID 09/09/24 09/13/24 05:00 History tablet (Entresto) Allergy/AdvReac Type Severity Reaction Status Date / Time latex Allergy Intermediate rash Verified 09/13/24 05:50 Sulfa (Sulfonamide AdvReac Severe Unknown Verified 09/13/24 05:50 Antibiotics) Family History Mother Diabetes Hypertension Thyroid cancer Father Hypertension Brother Hypertension Surgical History H/O total hysterectomy Social History Smoking Status: Never smoker alcohol intake: current alcohol intake frequency: holidays/special occasions only substance use type: does not use caffeine: Yes Type: carbonated beverages Number of servings: 1 and coffee Number of servings: 1 ROS Constitutional Constitutional: Denies fatigue, fever(s), poor appetite, weight gain or weight loss Gastrointestinal Gastrointestinal: Denies belching, bloating, change in bowel habits, change in stool character, chewing difficulty, coffee ground emesis, constipation, cramping, diarrhea, dyspepsia, dysphagia, early satiety, excessive flatus, fecal incontinence, heartburn, hematemesis, hematochezia, hemorrhoids, loose stools, melena, nausea, odynophagia, rectal bleeding, tenesmus, vomiting or weight changes Vital Signs Vital Signs Vital Signs: 09/13/24 05:48 09/13/24 05:53 09/13/24 06:36 Temperature 96.9 F L 96.9 F L Temperature Source Temporal Pulse Rate 63 63 Respiratory Rate 16 16 Respiratory Pattern Normal Blood Pressure 122/77 H 122/77 H Blood Pressure Mean 92 Blood Pressure Source Monitor Blood Pressure Position Semi-Fowlers Blood Pressure Location Left Arm Pulse Ox 95 95 Oxygen Delivery Method Room Air Weight Weight: 199 lb 9.6 oz Body Mass Index (BMI) 37.7 Physical Exam Const alert, oriented x3, no apparent distress and healthy appearing General Appearance: cooperative GI normal to inspection, nondistended, normoactive bowel sounds, soft to palpation, non-tender and non-distended Percussion: normal to percussion Rectal Exam: deferred Assessment & Plan Assessment/Plan (1) Rectal bleeding: (2) Abdominal pain: PLAN: Plan Plan 48y/o female presents for consultation with complaints of BRBPR and rectal pain with BM intermittently over the past six months. She denies any change in bowel habits, weight loss or abdominal pain. She complains of chronic HB without N/V or dysphagia. I have scheduled her for bidirectional endoscopies. She will start a PPI daily, Anusol suppositories for the next 7 days and follow-up in the office post procedure. Patient Instructions: Increase fluid intake Start Metamucil 2 tsp. once a day in 8 ounces of water after breakfast F/U in office post procedure Plan Details Follow Up: 3 Months
--- NOTE | 2024-09-13 07:17 | PCM.POST.ANE ---
Anesthesia: Postop Eval I Current Vital Signs Temperature: 37 F Pulse Rate: 88 Blood Pressure: 102/70 Respiratory Rate: 20 Pulse Ox: 95 Oxygen Delivery Method: Room Air Assessment Airway patent: Yes Spontaneous unlabored respirations: Yes Mental status: Awake nausea: No Vomiting: No Anesthesia Complication: No Fluid Hydration Crystalloid volume administer (ml): 10 Total IV fluid infused: 10 Progress Note Anesthesia document: Postop Eval 1 completed: Yes
--- NOTE | 2024-09-13 07:20 | OP.EGD_ITS ---
Patient Name: Danielle Coffey Procedure Date: 09/13/2024 6:31 AM Date of : 1975 Age: 48 Procedure: Upper GI endoscopy Indications: Epigastric abdominal pain Providers: Sampson Castro DO Medicines: Monitored Anesthesia Care Patient Profile: This is a 48 year old female. Refer to note in patient chart for documentation of history and physical. Patient has symptoms of acute epigastric abdominal pain. Complications: No immediate complications. Procedure: Pre-Anesthesia Assessment: - Prior to the procedure, a History and Physical was performed, and patient medications and allergies were reviewed. The patient is competent. The risks and benefits of the procedure and the sedation options and risks were discussed with the patient. All questions were answered and informed consent was obtained. Patient identification and proposed procedure were verified by the physician in the pre-procedure area. Mental Status Examination: alert and oriented. Airway Examination: normal oropharyngeal airway and neck mobility. Respiratory Examination: clear to auscultation. CV Examination: normal. Prophylactic Antibiotics: The patient does not require prophylactic antibiotics. Prior Anticoagulants: The patient has taken no anticoagulant or antiplatelet agents except for NSAID medication. ASA Grade Assessment: II - A patient with mild systemic disease. After reviewing the risks and benefits, the patient was deemed in satisfactory condition to undergo the procedure. The anesthesia plan was to use monitored anesthesia care (MAC). Immediately prior to administration of medications, the patient was re-assessed for adequacy to receive sedatives. The heart rate, respiratory rate, oxygen saturations, blood pressure, adequacy of pulmonary ventilation, and response to care were monitored throughout the procedure. The physical status of the patient was re-assessed after the procedure. After obtaining informed consent, the endoscope was passed under direct vision. Throughout the procedure, the patient's blood pressure, pulse, and oxygen saturations were monitored continuously. The Colonoscope was introduced through the mouth, and advanced to the second part of duodenum. The upper GI endoscopy was accomplished without difficulty. The patient tolerated the procedure well. Scope In: 6:54:47 AM Scope Out: 6:57:25 AM Total Procedure Duration Time 0 hours 2 minutes 38 seconds Findings: LA Grade A (one or more mucosal breaks less than 5 mm, not extending between tops of 2 mucosal folds) esophagitis with no bleeding was found 37 to 40 cm from the incisors. Biopsies were taken with a cold forceps for histology. Verification of patient identification for the specimen was done. Estimated blood loss was minimal. A small hiatal hernia was present. The first portion of the duodenum was normal. Impression: - LA Grade A reflux esophagitis with no bleeding. Biopsied. - Small hiatal hernia. - Normal first portion of the duodenum. Recommendation: - Discharge patient to home (ambulatory). - Continue present medications. Procedure Code(s): --- Professional --- 11994, Esophagogastroduodenoscopy, flexible, transoral; with biopsy, single or multiple CPT copyright 2021 [employer]. All rights reserved. The codes documented in this report are preliminary and upon otr owner operator review may be revised to meet current compliance requirements. Sampson Castro DO 09/13/2024 7:19:37 AM This report has been signed electronically. Number of Addenda: 0 Note Initiated On: 09/13/2024 6:31 AM
--- NOTE | 2024-09-13 07:20 | OP.CCLET_ITS ---
09/13/2024 Jj Alcala [address] [place] [address] Re : Upper GI endoscopy procedure for Danielle [place] Dear Dr. Alcala This procedure was performed on Friday, September 13, 2024. My impressions and recommendations are as follows: Impressions : - LA Grade A reflux esophagitis with no bleeding. Biopsied. - Small hiatal hernia. - Normal first portion of the duodenum. Recommendations : - Discharge patient to home (ambulatory). - Continue present medications. My findings are described in the full procedure note, which is enclosed. If I can be of further assistance, please feel free to contact me at . Sincerely, Sampson Castro DO 09/13/2024 7:19:37 AM This report has been signed electronically.
--- NOTE | 2024-09-13 07:23 | OP.COLON_ITS ---
Patient Name: Danielle Coffey Procedure Date: 09/13/2024 6:57 AM Date of : 1975 Age: 48 Procedure: Colonoscopy Indications: Screening for colorectal malignant neoplasm Providers: Sampson Castro DO Medicines: Monitored Anesthesia Care Patient Profile: This is a 48 year old female. Refer to note in patient chart for documentation of history and physical. Patient has symptoms of acute epigastric abdominal pain. Last Colonoscopy: none. The patient's first colonoscopy is today. Complications: No immediate complications. Procedure: Pre-Anesthesia Assessment: - Prior to the procedure, a History and Physical was performed, and patient medications and allergies were reviewed. The patient is competent. The risks and benefits of the procedure and the sedation options and risks were discussed with the patient. All questions were answered and informed consent was obtained. Patient identification and proposed procedure were verified by the physician in the pre-procedure area. Mental Status Examination: alert and oriented. Airway Examination: normal oropharyngeal airway and neck mobility. Respiratory Examination: clear to auscultation. CV Examination: normal. Prophylactic Antibiotics: The patient does not require prophylactic antibiotics. Prior Anticoagulants: The patient has taken no anticoagulant or antiplatelet agents except for NSAID medication. ASA Grade Assessment: II - A patient with mild systemic disease. After reviewing the risks and benefits, the patient was deemed in satisfactory condition to undergo the procedure. The anesthesia plan was to use monitored anesthesia care (MAC). Immediately prior to administration of medications, the patient was re-assessed for adequacy to receive sedatives. The heart rate, respiratory rate, oxygen saturations, blood pressure, adequacy of pulmonary ventilation, and response to care were monitored throughout the procedure. The physical status of the patient was re-assessed after the procedure. After I obtained informed consent, the scope was passed under direct vision. Throughout the procedure, the patient's blood pressure, pulse, and oxygen saturations were monitored continuously. The Colonoscope was introduced through the anus and advanced to the terminal ileum, with identification of the appendiceal orifice and IC valve. The colonoscopy was performed without difficulty. The patient tolerated the procedure well. The quality of the bowel preparation was adequate. The terminal ileum, ileocecal valve, appendiceal orifice, and rectum were photographed. Scope In: 6:59:07 AM Scope Withdrawal Time 0 hours 6 minutes 32 seconds Scope Out: 7:08:30 AM Total Procedure Duration Time 0 hours 9 minutes 23 seconds Findings: The perianal and digital rectal examinations were normal. A 5 mm polyp was found in the rectum. The polyp was sessile. The polyp was removed with a cold biopsy forceps. Resection and retrieval were complete. Verification of patient identification for the specimen was done. Estimated blood loss was minimal. Non-bleeding internal hemorrhoids were found during retroflexion. The hemorrhoids were Grade II (internal hemorrhoids that prolapse but reduce spontaneously). The exam was otherwise without abnormality on direct and retroflexion views. Impression: - One 5 mm polyp in the rectum, removed with a cold biopsy forceps. Resected and retrieved. - Non-bleeding internal hemorrhoids. - The examination was otherwise normal on direct and retroflexion views. Recommendation: - Discharge patient to home. - Resume previous diet. - Continue present medications. - Await pathology results. - Repeat colonoscopy in 5 years for surveillance. Procedure Code(s): --- Professional --- 45615, Colonoscopy, flexible; with biopsy, single or multiple CPT copyright 2021 [employer]. All rights reserved. The codes documented in this report are preliminary and upon bean roaster review may be revised to meet current compliance requirements. Sampson Castro DO 09/13/2024 7:22:42 AM This report has been signed electronically. Number of Addenda: 0 Note Initiated On: 09/13/2024 6:57 AM
--- NOTE | 2024-09-13 07:23 | OP.CCLET_ITS ---
09/13/2024 Jj Alcala [address] [place] [address] Re : Colonoscopy procedure for [facility] Dear Dr. Alcala This procedure was performed on Friday, September 13, 2024. My impressions and recommendations are as follows: Impressions : - One 5 mm polyp in the rectum, removed with a cold biopsy forceps. Resected and retrieved. - Non-bleeding internal hemorrhoids. - The examination was otherwise normal on direct and retroflexion views. Recommendations : - Discharge patient to home. - Resume previous diet. - Continue present medications. - Await pathology results. - Repeat colonoscopy in 5 years for surveillance. My findings are described in the full procedure note, which is enclosed. If I can be of further assistance, please feel free to contact me at . Sincerely, Sampson Castro, 09/13/2024 7:22:42 AM This report has been signed electronically.
--- NOTE | 2024-09-13 09:13 | POSTOPAN2_ITS ---
Anesthesia Postop Eval I Sum Postop Eval Completion status Anesthesia document: Postop Eval 1 completed: Yes Anesthesia Postop Eval I Summary Anesthesia Postop Eval I Summary: Anesthesia Postop Eval I: Assessment Summary Airway patent Yes 09/13/24 07:18 [email or web address] Spontaneous unlabored Yes 09/13/24 07:18 [email or web address] [email or web address] respirations Mental status Awake 09/13/24 07:18 [email or web address] nausea No 09/13/24 07:18 [email or web address] [email or web address] Vomiting No 09/13/24 07:18 [email or web address] [email or web address] Anesthesia Postop Eval I: Fluid Summary Crystalloid volume administer 10 09/13/24 07:18 [email or web address] (ml) Colloids volume administered ( ml) Blood Product volume administered (ml) Total IV fluid infused 10 09/13/24 07:18 [email or web address] Anesthesia Postop Eval I: Summary Notes Anesthesia Complication No 09/13/24 07:18 [email or web address] [email or web address] Anesthesia Complication Comment: Post-operative progress note Anesthesia: Postop Eval II Evaluation Mental status: Awake Pain Level: 0 nausea: No Vomiting: No
--- NOTE | 2024-09-13 09:13 | PCM.POSTANE2 ---
Anesthesia Postop Eval I Sum Postop Eval Completion status Anesthesia document: Postop Eval 1 completed: Yes Anesthesia Postop Eval I Summary Anesthesia Postop Eval I Summary: Anesthesia Postop Eval I: Assessment Summary Airway patent Yes 09/13/24 07:18 CODING COMPLIANCE [email or web address] Spontaneous unlabored Yes 09/13/24 07:18 CODING COMPLIANCE [email or web address] respirations Mental status Awake 09/13/24 07:18 CODING COMPLIANCE [email or web address] nausea No 09/13/24 07:18 CODING COMPLIANCE [email or web address] Vomiting No 09/13/24 07:18 CODING COMPLIANCE [email or web address] Anesthesia Postop Eval I: Fluid Summary Crystalloid volume administer 10 09/13/24 07:18 CODING COMPLIANCE [email or web address] (ml) Colloids volume administered ( ml) Blood Product volume administered (ml) Total IV fluid infused 10 09/13/24 07:18 CODING COMPLIANCE [email or web address] Anesthesia Postop Eval I: Summary Notes Anesthesia Complication No 09/13/24 07:18 CODING COMPLIANCE [email or web address] Anesthesia Complication Comment: Post-operative progress note Anesthesia: Postop Eval II Evaluation Mental status: Awake Pain Level: 0 nausea: No Vomiting: No
== END 2024-09-13 08:11 | disposition home or self-care (01) ==
LOC: EN 05:16 → AC 05:20
PROVIDERS: PCP Family Medicine; Referring Provider Family Medicine; Visit Provider Internal Medicine Gastroenterology
PROC: 0DJD8ZZ Inspection of Lower Intestinal Tract, Via Natural or Artificial Opening Endoscopic (ICD-10-PCS; CPT 45378; principal; 2024-09-13 06:25)
DX: Z12.11 Encounter for screening for malignant neoplasm of colon (principal); I11.0 Hypertensive heart disease with heart failure; I50.22 Chronic systolic (congestive) heart failure; K64.1 Second degree hemorrhoids; D12.8 Benign neoplasm of rectum; K21.00 Gastro-esophageal reflux disease with esophagitis, without bleeding; K44.9 Diaphragmatic hernia without obstruction or gangrene; Z79.899 Other long term (current) drug therapy
CPT/HCPCS: 43239; 45380; 88305; 88312; A4216

== ENCOUNTER → 2024-09-15 | Outpatient (CLI) | payer BC, SELFPAY ==
--- NOTE | 2024-09-15 15:23 | BI_ITS ---
PROCEDURE: SCRN MAMM (CAD)W/OMAR BILAT REASON FOR EXAM: F, Age 48 y/o, routine annual mammogram. No family history. TECHNIQUE: Bilateral screening digital breast tomosynthesis with 2D and 3D images. Computer aided detection. COMPARISON: Prior exam(s) dating back to April 23, 2021. FINDINGS: There are scattered areas of fibroglandular density. A pacemaker battery pack is seen in the left axilla. No suspicious masses, areas of developing architectural distortion, or suspicious calcifications. Stable examination. BI/SCRN MAMM (CAD)W/OMAR BILAT IMPRESSION: BI-RADS 2: BENIGN. RECOMMEND ANNUAL MAMMOGRAPHIC SCREENING. Follow-up code: Routine Follow-up The patient will be notified of the results by letter. Reading Location: [place] [address]
== END | disposition home or self-care (01) ==
LOC: OPBI 15:23
PROVIDERS: PCP Family Medicine; Referring Provider Student in an Organized Health Care Education/Training Program; Visit Provider Student in an Organized Health Care Education/Training Program
DX: Z12.31 Encounter for screening mammogram for malignant neoplasm of breast (principal)
CPT/HCPCS: 77063; 77067